=== PATIENT | female | born 1965 | race African-American/Black ===

== ENCOUNTER 2018-07-15 18:47 | Emergency (ER) | payer BC ==
[~2018-07-15] VITALS: Ht 177.8 cm; Wt 77.1 kg
--- NOTE | 2018-07-15 19:07 | PHYS DOC ---
Adult General Chief Complaint Chief Complaint: ABDOMINAL PAIN HPI HPI Patient is a 52 year old female presents the ED complaining of abdominal pain 3 days. States the pain started and it was sharp. States the pain was intermittent but has now become constant. States pain is in the right lower quadrant. Describes the pain as sharp. Rates the pain as 10 out of 10. Associated symptoms include nausea. Denies vomiting, chest pain, shortness of breath, diarrhea, fever, weakness, dizziness, chest pain or shortness of breath. Review of Systems Review of Systems Constitutional: Denies fever or chills [] Eyes: Denies change in visual acuity, redness, or eye pain [] HENT: Denies nasal congestion or sore throat [] Respiratory: Denies cough or shortness of breath [] Cardiovascular: No additional information not addressed in HPI [] GI: Complains of abdominal pain and nausea. Denies vomiting, bloody stools or diarrhea [] : Denies dysuria or hematuria [] Musculoskeletal: Denies back pain or joint pain [] Integument: Denies rash or skin lesions [] Neurologic: Denies headache, focal weakness or sensory changes [] All other systems were reviewed and found to be within normal limits, except as documented in this note. Current Medications Current Medications Current Medications Medications (Trade) Dose Ordered Sig/Whitney Start Time Stop Time Status Last Admin Dose Admin Iohexol (Omnipaque 300 Mg/ml) 75 ml 1X ONCE 07/15/18 19:45 07/15/18 19:46 DC 07/15/18 19:53 75 ML Ketorolac Tromethamine (Toradol 15mg Vial) 15 mg 1X ONCE 07/15/18 20:45 07/15/18 20:46 DC 07/15/18 21:06 15 MG Morphine Sulfate (Morphine Sulfate) 4 mg 1X ONCE 07/15/18 19:15 07/15/18 19:16 DC 07/15/18 19:24 4 MG Ondansetron HCl (Zofran) 4 mg 1X ONCE 07/15/18 19:15 07/15/18 19:16 DC 07/15/18 19:24 4 MG Allergies Allergies Allergies Coded Allergies Type Severity Reaction Last Updated Verified Penicillins Allergy Unknown 07/15/18 Yes ibuprofen Allergy Unknown 07/15/18 Yes Uncoded Allergies Type Severity Reaction Last Updated Verified SEA FOOD Allergy Unknown 07/15/18 Physical Exam Physical Exam Constitutional: Well developed, well nourished, no acute distress, non-toxic appearance. [] HENT: Normocephalic, atraumatic Cardiovascular:Heart rate regular rhythm, no murmur [] Lungs & Thorax: Bilateral breath sounds clear to auscultation [] Abdomen: Bowel sounds normal, soft, Mild RLQ tenderness, no masses, no pulsatile masses. [] Skin: Warm, dry, no erythema, no rash. [] Back: No tenderness, no CVA tenderness. [] Extremities: No tenderness, no cyanosis, no clubbing, ROM intact, no edema. [] Neurologic: Alert and oriented X 3, normal motor function, normal sensory function, no focal deficits noted. [] Psychologic: Affect normal, judgement normal, mood normal. [] Current Patient Data Vital Signs Vital Signs Date Time Temp Pulse Resp B/P (MAP) Pulse Ox O2 Delivery O2 Flow Rate FiO2 07/15/18 21:00 68 18 125/62 (83) 99 07/15/18 19:05 98.6 Room Air 98.6 Lab Values Laboratory Tests Test 07/15/18 19:00 07/15/18 19:15 Urine Collection Type Unknown Urine Color Yellow Urine Clarity Clear Urine pH 6.0 Urine Specific [place] 1.020 Urine Protein Negative mg/dL (NEG-TRACE) Urine Glucose (UA) Negative mg/dL (NEG) Urine Ketones (Stick) Negative mg/dL (NEG) Urine Blood Moderate (NEG) Urine Nitrite Negative (NEG) Urine Bilirubin Negative (NEG) Urine Urobilinogen Dipstick 1.0 mg/dL (0.2 mg/dL) Urine Leukocyte Esterase Negative (NEG) Urine RBC 6-10 /HPF (0-2) Urine WBC Occ /HPF (0-4) Urine Squamous Epithelial Cells Mod /LPF Urine Bacteria Few /HPF (0-FEW) Urine Mucus Mod /LPF White Blood Count 9.1 x10^3/uL (4.0-11.0) Red Blood Count 3.77 x10^6/uL (3.50-5.40) Hemoglobin 13.1 g/dL (12.0-15.5) Hematocrit 37.6 % (36.0-47.0) Mean Corpuscular Volume 100 fL (79-100) Mean Corpuscular Hemoglobin 35 pg (25-35) Mean Corpuscular Hemoglobin Concent 35 g/dL (31-37) Red Cell Distribution Width 14.5 % (11.5-14.5) Platelet Count 381 x10^3/uL (140-400) Neutrophils (%) (Auto) 57 % (31-73) Lymphocytes (%) (Auto) 32 % (24-48) Monocytes (%) (Auto) 7 % (0-9) Eosinophils (%) (Auto) 3 % (0-3) Basophils (%) (Auto) 0 % (0-3) Neutrophils # (Auto) 5.2 x10^3uL (1.8-7.7) Lymphocytes # (Auto) 2.9 x10^3/uL (1.0-4.8) Monocytes # (Auto) 0.7 x10^3/uL (0.0-1.1) Eosinophils # (Auto) 0.3 x10^3/uL (0.0-0.7) Basophils # (Auto) 0.0 x10^3/uL (0.0-0.2) Sodium Level 137 mmol/L (136-145) Potassium Level 3.9 mmol/L (3.5-5.1) Chloride Level 106 mmol/L (98-107) Carbon Dioxide Level 28 mmol/L (21-32) Anion Gap 3 (6-14) L Blood Urea Nitrogen 12 mg/dL (7-20) Creatinine 0.9 mg/dL (0.6-1.0) Estimated GFR (Cockcroft-Gault) 79.9 BUN/Creatinine Ratio 13 (6-20) Glucose Level 94 mg/dL (70-99) Calcium Level 8.8 mg/dL (8.5-10.1) Total Bilirubin 0.4 mg/dL (0.2-1.0) Aspartate Amino Transferase (AST) 19 U/L (15-37) Alanine Aminotransferase (ALT) 20 U/L (14-59) Alkaline Phosphatase 87 U/L (46-116) Total Protein 7.0 g/dL (6.4-8.2) Albumin 3.3 g/dL (3.4-5.0) L Albumin/Globulin Ratio 0.9 (1.0-1.7) L Lipase 121 U/L (73-393) Laboratory Tests 07/15/18 19:15 Laboratory Tests 07/15/18 19:15 EKG EKG [] Radiology/Procedures Radiology/Procedures PROCEDURE: CT ABD PELV W/ IV CONTRST ONLY PQRS Compliance statement: One or more of the following individualized dose reduction techniques were utilized for this examination: 1. Automated exposure control. 2. Adjustment of the mA and/or kV according to patient size. 3. Use of iterative reconstruction technique. Indication:SEVERE RLQ AND RT FLANK PAIN X 3 DAYS, [id number] 75ML, NO PRIORS TECHNIQUE: CT abdomen and pelvis with IV contrast with multiplanar reformats. COMPARISON: None FINDINGS: Heart is normal in size. No pericardial or pleural effusion. Calcified granuloma in the left lower lobe. Otherwise, lung bases are clear. Liver, spleen, gallbladder, pancreas, adrenals and kidneys are within normal limits. No enlarged retroperitoneal or pelvic adenopathy. No free pelvic fluid or ascites. Status post hysterectomy. No bowel obstruction. Multiple soft tissue nodules in the left upper quadrant likely accessory spleens. Appendix is within normal limits. No right lower quadrant inflammatory changes. Urinary bladder demonstrates no radiopaque stones. No suspicious bony lesion. IMPRESSION: 1. No nephrolithiasis or pelvis. 2. Normal appendix. No bowel obstruction.[] Course & Med Decision Making Course & Med Decision Making Pertinent Labs and Imaging studies reviewed. (See chart for details) []Discussed lab and imaging findings with patient. Patient's pain resolved. On re-examination, abdomen is soft nontender nondistended. No peritoneal signs. Tolerating by mouth. Possible passed kidney stone. Discussed symptomatic treatment at home. Patient states she is feeling much better. Patient able to ambulate without assistance. Talking and laughing in the exam room. Discussed follow-up with PCP this week. Provided contact information for urology and PCP. Discussed reasons to return to the ED. Patient understands and agrees with plan. Attending physician attestation: I was working at the time of this patient's ER visit and was available for consultation, but did not personally interview, examine, or directly take part in the patient's care. DO Soumya Barney Disclaimer Soumya Disclaimer This electronic medical record was generated, in whole or in part, using a voice recognition dictation system. Departure Departure Impression: Primary Impression: Abdominal pain Disposition: HOME, SELF-CARE Condition: IMPROVED Referrals: HUMA ELENA MD, MICHAEL M MD Patient Instructions: Abdominal Pain, Kidney Stones HUMA CASTELLANO Jul 15, 2018 19:07 STEVE TORREZ DO Jul 19, 2018 06:21
[2018-07-15] MEDS ORDERED: ONDANSETRON PF 4 MG/2 ML VIAL. IV ONE (19:15)
[2018-07-15] MEDS ORDERED: MORPHINE SULFATE 4 MG/ML VIAL. IV ONE (19:15)
[2018-07-15 19:23] LABS: BILIRUBIN,URINE NEGATIVE (NEG); CLARITY,URINE CLEAR; COLOR,URINE YELLOW; NITRITE,URINE NEGATIVE (NEG); PROTEIN,URINE NEGATIVE (NEG-TRACE)
[2018-07-15 19:29] LABS: BASO % 0 % (0-3); EOS # 0.3 x10^3/uL (0.0-0.7); EOS % 3 % (0-3); HEMATOCRIT 37.6 % (36.0-47.0); HEMOGLOBIN 13.1 g/dL (12.0-15.5); LYMPH # 2.9 x10^3/uL (1.0-4.8); LYMPH % 32 % (24-48); MEAN CORPUSCULAR HEMOGLOBIN 35 pg (25-35); MEAN CORPUSCULAR HGB CONC 35 g/dL (31-37); MEAN CORPUSCULAR VOLUME 100 fL (79-100); MONO # 0.7 x10^3/uL (0.0-1.1); MONO % 7 % (0-9); NEUT # 5.2 x10^3uL (1.8-7.7); NEUT % 57 % (31-73); PLATELET COUNT 381 x10^3/uL (140-400); RED BLOOD COUNT 3.77 x10^6/uL (3.50-5.40); RED CELL DISTRIBUTION WIDTH 14.5 % (11.5-14.5); WHITE BLOOD COUNT 9.1 x10^3/uL (4.0-11.0)
[2018-07-15 19:40] LABS: CALCIUM 8.8 mg/dL (8.5-10.1); CREATININE 0.9 mg/dL (0.6-1.0); GFR 79.9; POTASSIUM 3.9 mmol/L (3.5-5.1)
[2018-07-15 19:43] LABS: BACTERIA,URINE FEW /HPF (0-FEW); SQUAMOUS EPITHELIAL CELL,UR MOD /LPF; WBC,URINE OCC /HPF (0-4)
[2018-07-15] MEDS ORDERED: IOHEXOL 300 MG/ML 100ML VIAL. IV ONE (19:45)
[2018-07-15 19:46] LABS: ALBUMIN 3.3 g/dL (3.4-5.0); ALBUMIN/GLOBULIN RATIO 0.9 (1.0-1.7); TOTAL BILIRUBIN 0.4 mg/dL (0.2-1.0)
--- NOTE | 2018-07-15 20:10 | RAD ---
PQRS Compliance statement: One or more of the following individualized dose reduction techniques were utilized for this examination: 1. Automated exposure control. 2. Adjustment of the mA and/or kV according to patient size. 3. Use of iterative reconstruction technique. Indication:SEVERE RLQ AND RT FLANK PAIN X 3 DAYS, [id number] 75ML, NO PRIORS TECHNIQUE: CT abdomen and pelvis with IV contrast with multiplanar reformats. COMPARISON: None FINDINGS: Heart is normal in size. No pericardial or pleural effusion. Calcified granuloma in the left lower lobe. Otherwise, lung bases are clear. Liver, spleen, gallbladder, pancreas, adrenals and kidneys are within normal limits. No enlarged retroperitoneal or pelvic adenopathy. No free pelvic fluid or ascites. Status post hysterectomy. No bowel obstruction. Multiple soft tissue nodules in the left upper quadrant likely accessory spleens. Appendix is within normal limits. No right lower quadrant inflammatory changes. Urinary bladder demonstrates no radiopaque stones. No suspicious bony lesion. IMPRESSION: 1. No nephrolithiasis or pelvis. 2. Normal appendix. No bowel obstruction. Electronically signed by: Miguel Angel Wilcox DO (07/15/2018 8:07 PM) [facility]
[2018-07-15] MEDS ORDERED: KETOROLAC 15 MG/ML VIAL. IV ONE (20:45)
[2018-07-15 21:00] VITALS: BP 125/62
== END 2018-07-15 21:38 | disposition home or self-care (01) ==
LOC: ER 18:47
DX: R10.31 Right lower quadrant pain (principal); Z88.0 Allergy status to penicillin; Z88.6 Allergy status to analgesic agent; Z91.013 Allergy to seafood
CPT/HCPCS: 36415; 74177; 80053; 81001; 83690; 85025; 96374; 96375; 99285; J1885; J2270; J2405; Q9967

== ENCOUNTER 2019-02-23 16:44 | Emergency (ER) | payer BC ==
[~2019-02-23] VITALS: Ht 177.8 cm; Wt 78.0 kg
[2019-02-23 16:50] VITALS: BP 127/84
[2019-02-23] MEDS ORDERED: diazePAM 5 MG TABLET PO ONE (17:15)
[2019-02-23] MEDS ORDERED: HYDROcodone/APAP 5/325MG 1 TAB TABLET PO ONE (17:15)
[2019-02-23] MEDS ORDERED: predniSONE 20 MG TABLET PO ONE (17:15)
--- NOTE | 2019-02-23 17:24 | PHYS DOC ---
Past Medical History Past Medical History: No Pertinent History Past Surgical History: Hysterectomy Alcohol Use: None Drug Use: None Adult General Chief Complaint Chief Complaint: BACK PAIN - NO INJURY HPI HPI Patient is a 53 year old female with no significant medical history who presents to the ED today complaining of 10 out of 10 left low back pain radiating to the left lower extremity that began yesterday. Patient denies any known injury. She states she attempted to get them a massage which made the pain worse. She describes the pain as sharp and intermittent worse on raising her left upper extremity up as well as weight bearing. She denies any loss of bowel bladder function. Denies any numbness or tingling to bilateral lower extremities. Review of Systems Review of Systems Constitutional: Denies fever or chills [] : Denies dysuria or hematuria [] Musculoskeletal: Reports left low back pain radiating to the left lower extremity Integument: Denies rash or skin lesions [] Neurologic: Denies headache, focal weakness or sensory changes [] All other systems were reviewed and found to be within normal limits, except as documented in this note. Current Medications Current Medications Current Medications Medications (Trade) Dose Ordered Sig/[facility] Start Time Stop Time Status Last Admin Dose Admin Acetaminophen/ Hydrocodone Bitart (Lortab 5/325) 2 tab 1X ONCE 02/23/19 17:15 02/23/19 17:16 DC Diazepam (Valium) 5 mg 1X ONCE 02/23/19 17:15 02/23/19 17:17 DC Prednisone (Prednisone) 60 mg 1X ONCE 02/23/19 17:15 02/23/19 17:17 DC Allergies Allergies Allergies Coded Allergies Type Severity Reaction Last Updated Verified Penicillins Allergy Unknown 07/15/18 Yes ibuprofen Allergy Unknown 07/15/18 Yes Uncoded Allergies Type Severity Reaction Last Updated Verified SEA FOOD Allergy Unknown 07/15/18 Physical Exam Physical Exam Constitutional: Well developed, well nourished, no acute distress, non-toxic appearance. [] Abdomen: Bowel sounds normal, soft, no tenderness, no masses, no pulsatile masses. [] Skin: Warm, dry, no erythema, no rash. [] Back: Diffuse paraspinal muscle tenderness the left lumbar spine, no midline lumbar spine tenderness, no CVA tenderness. [] Extremities: No tenderness, no cyanosis, no clubbing, ROM intact, no edema. [] Neurologic: Alert and oriented X 3, normal motor function, normal sensory function, no focal deficits noted. [] Psychologic: Affect normal, judgement normal, mood normal. [] Current Patient Data Vital Signs Vital Signs Date Time Temp Pulse Resp B/P (MAP) Pulse Ox O2 Delivery O2 Flow Rate FiO2 02/23/19 16:50 97.5 70 18 127/84 (98) 98 Room Air 97.5 EKG EKG [] Radiology/Procedures Radiology/Procedures [] Course & Med Decision Making Course & Med Decision Making Pertinent Labs and Imaging studies reviewed. (See chart for details) This is a 53-year-old female patient presenting to the ED today with left low back pain radiating to the left lower extremity, no known injury, no cauda equina syndrome symptoms. Pain appears musculoskeletal. Will be discharged to home. Follow-up with primary care doctor in 1-2 weeks. Dragon Disclaimer Dragon Disclaimer This electronic medical record was generated, in whole or in part, using a voice recognition dictation system. Departure Departure Impression: Primary Impression: Low back pain Disposition: 01 HOME, SELF-CARE Condition: STABLE Referrals: NO PCP (PCP) STEVE SILVA MD follow up in 1-2 weeks Patient Instructions: Back Pain, Adult Additional Instructions: You were evaluated in the emergency room for back pain. We put you on medications, take them as prescribed. Please follow-up with the primary care doctor in the next 1-2 weeks. Scripts Methylprednisolone (MEDROL) 4 Mg Tab.ds.pk 1 PKG PO UD, #1 PKG Prov: MONA HERNANDEZ APRN 02/23/19 Cyclobenzaprine Hcl (CYCLOBENZAPRINE HCL) 10 Mg Tablet 1 TAB PO TID, #90 TAB Prov: MONA HERNANDEZ APRN 02/23/19 Hydrocodone/Apap 5-325 (NORCO 5-325 TABLET) 1 Each Tablet 1 TAB PO Q6HRS, #20 TAB Prov: MONA HERNANDEZ APRN 02/23/19 Problem Qualifiers Primary Impression: Low back pain Chronicity: acute Back pain laterality: left Sciatica presence: with sciatica Sciatica laterality: sciatica of left side Qualified Codes: M54.42 - Lumbago with sciatica, left side MONA HERNANDEZ APRN Feb 23, 2019 17:24
[2019-02-23] MEDS ORDERED: CYCL10TA2 PO (17:29)
[2019-02-23] MEDS ORDERED: HYDR-3164 PO (17:29)
[2019-02-23] MEDS ORDERED: METH4TAB2 PO (17:29)
[2019-04-15] MEDS ORDERED: ESTR2TAB PO (12:11)
[2019-04-15] MEDS ORDERED: VARE1TAB21 PO (12:12)
== END 2019-02-23 18:05 | disposition home or self-care (01) ==
LOC: ER 16:44
DX: M54.42 Lumbago with sciatica, left side (principal); Z90.710 Acquired absence of both cervix and uterus; Z88.0 Allergy status to penicillin; Z88.6 Allergy status to analgesic agent; Z91.013 Allergy to seafood
CPT/HCPCS: 99284; J7512

== ENCOUNTER → 2019-03-12 | Outpatient (CLI) | payer BC ==
[2019-02-23 16:50] VITALS: BP 127/84
[~2019-03-12] MED LIST: CYCL10TA2 PO; ESTR2TAB PO; HYDR-3164 PO; METH4TAB2 PO; VARE1TAB21 PO
--- NOTE | 2019-03-12 17:37 | RAD ---
HIP LEFT 2 VIEW History: LEFT HIP AND GROIN PAIN, NO KNOWN INJURY. No acute fracture. No evidence of aggressive bone destruction. Joint spaces are intact. Mild subchondral sclerosis at the pubic bones, likely reactive. IMPRESSION: No acute radiographic abnormality at the left hip. Electronically signed by: Joshua Culp MD (03/12/2019 5:34 PM) [id number]
--- NOTE | 2019-03-12 18:11 | RAD ---
LUMBAR SPINE 2-3V History: CHRONIC LOW BACK PAIN, NO KNOWN INJURY. Vertebral body height is maintained. Alignment intact. Loss of height and marginal spurring at the lumbosacral junction compatible with degenerative disc disease. IMPRESSION: Degenerative changes at the lumbosacral junction. Electronically signed by: Joshua Culp MD (03/12/2019 6:08 PM) [facility]
--- NOTE | 2019-03-13 13:15 | RAD ---
DATE: 03/12/2019 EXAM: MAMMO ELIAZAR SCREENING BILATERAL HISTORY: Routine screening COMPARISON: 02/04/2011, 07/10/2017 mammographic exams This study was interpreted with the benefit of Computerized Aided Detection (CAD). Breast Density: SCATTERED The breast parenchyma shows scattered fibroglandular densities. Breast parenchyma level B. FINDINGS: A new mass involving the right lower outer far posterior breast in the deep retroareolar region is present and measures approximately 0.5 cm diameter and is well-circumscribed on the CC projection. A small new mass involving the middle the posterior one third of the left retroareolar region is present in the interval measuring up to 0.5 cm diameter. No suspicious calcifications or distortion. IMPRESSION: Bilateral new masses present. Ultrasound examination bilaterally is recommended. Spot compression imaging may subsequently be needed. BI-RADS CATEGORY: 0 INCOMPLETE: NEEDS ADDITIONAL IMAGING EVALUATION AND/OR PRIOR MAMMOGRAMS FOR COMPARISON. RECOMMENDED FOLLOW-UP: ADD ADDITIONAL IMAGING PQRS compliance statement: Patient information was entered into a reminder system with a target due date pending ultrasound evaluation for the next mammogram. Mammography is a sensitive method for finding small breast cancers, but it does not detect them all and is not a substitute for careful clinical examination. A negative mammogram does not negate a clinically suspicious finding and should not result in delay in biopsying a clinically suspicious abnormality. "Our facility is accredited by the [employer] Mammography Program."
== END | disposition home or self-care (01) ==
LOC: MAMMO 14:19
PROVIDERS: ATTEND Family Medicine
DX: Z12.31 Encounter for screening mammogram for malignant neoplasm of breast (principal); N63.13 Unspecified lump in the right breast, lower outer quadrant; N63.20 Unspecified lump in the left breast, unspecified quadrant; M89.8X8 Other specified disorders of bone, other site; M47.817 Spondylosis without myelopathy or radiculopathy, lumbosacral region; M25.552 Pain in left hip
CPT/HCPCS: 72100; 73502; 77063; 77067

== ENCOUNTER → 2019-03-19 | Outpatient (CLI) | payer BC ==
[2019-02-23 16:50] VITALS: BP 127/84
--- NOTE | 2019-03-19 15:23 | RAD ---
Bilateral breast ultrasound, 03/19/2019: History: Abnormal mammograms Previous mammograms demonstrated small bilateral breast nodules. A targeted ultrasound exam of both breasts was performed. On the right, at the 6:30 location approximately 5 cm from the nipple there is a 5 x 4 x 4 mm hypoechoic nodule. This probably corresponds to the mammographic abnormality. There are minimal low level internal echoes. No internal color flow is seen. There is a sharp posterior wall with faint posterior acoustic enhancement. This is probably a complicated cyst. On the left, at the 6:00 location approximately 4 cm from the nipple there is a 5 x 4 x 4 mm hypoechoic nodule with similar sonographic characteristics. No internal color flow or posterior acoustic shadowing is seen. This probably corresponds in location to the left nodule identified mammographically. At the 8:00 location in the left breast approximately 5 cm from the nipple there there is a 4 x 4 x 2 mm hypoechoic nodule with similar sonographic characteristics. A similar 5 x 4 x 3 mm hypoechoic nodule is present at the 4:00 location in the left breast approximately 7 cm in the nipple. IMPRESSION: Probably benign small bilateral breast nodules as described above, two of which appear to correspond in location to the mammographic findings. Bilateral mammographic and sonographic follow-up in 6 months is suggested. BI-RADS 3-probably benign findings
== END | disposition home or self-care (01) ==
LOC: US 15:35
PROVIDERS: ATTEND Family Medicine
DX: N63.23 Unspecified lump in the left breast, lower outer quadrant (principal); N63.24 Unspecified lump in the left breast, lower inner quadrant; N63.13 Unspecified lump in the right breast, lower outer quadrant
CPT/HCPCS: 76641

== ENCOUNTER → 2019-04-15 | Outpatient (CLI) | payer BC ==
[~2019-04-15] MED LIST changes: +IOHEXOL 180 MG/ML 10 ML VIAL. ONE; +methylPREDNISolone ACETATE 40 MG/ML VIAL. ONE; +methylPREDNISolone ACETATE 80 MG/ML VIAL. ONE
--- NOTE | 2019-04-16 05:08 | PAIN ---
DATE OF SERVICE: 04/15/2019 INITIAL CONSULTATION FOR PAIN CLINIC CHIEF COMPLAINT: Low back and left lower extremity pain. HISTORY OF PRESENT ILLNESS: This is a 53-year-old female who presents with history of pain for about a year, increasing in the low back, but into the leg for about a month, was becoming much more noticeable in the posterior gluteus, posterior thigh, posterior calf all on the left side, some in the lateral thigh as well. It is worst with walking, standing and changing positions. This patient reports no specific injury or action that she is aware of particularly it got worse over time. The patient reports it is now throbbing and shooting in the low back and leg, tingling and numbness, radiation to the leg as well in the calf and aching across the low back. The patient has had some exercise therapy in the home or is doing on her own in the past, also had some physical therapy in the distant past, but nothing recently. No chiropractic treatment or other modalities. The patient reports it awakens her from sleep about 3 to 4 times at night, does not affect her bowel or bladder control, but does affect her ability to walk. She is walking with a significant limp favoring the left lower extremity, but not using any assistive devices. The patient is taking Flexeril as well as Aleve neither of which are decreasing the pain significantly. The patient did have some plain films of the lumbar spine showing degenerative changes of the lumbosacral junction compatible with degenerative disk disease and also normal left hip film. The patient rates her disability rating from 0 to 10, 10 being the worst, as an 8 with family and home responsibilities, social activity, self-care and life support activities, 9 with recreation, 10 with occupation and sexual behavior. The patient reports no loss of motor function with significant fatigability of the left leg compared to the right with any activity, walking, standing or sitting for longer than 20 to 30 minutes. PAST MEDICAL HISTORY: Significant for cigarette smoking, quit 1 month ago, previously 20 years for a pack and half a day and headaches. PREVIOUS SURGERY: Include hysterectomy in 1996 and left foot surgery in the past. CURRENT MEDICATIONS: Include Chantix, estradiol and cyclobenzaprine. ALLERGIES: THE PATIENT IS ALLERGIC TO IBUPROFEN AND AMOXICILLIN. SOCIAL HISTORY: The patient does not drink alcohol. Quit smoking about a month ago. She is not using any illegal, illicit or recreational drugs. She is single. Lives locally in [place], [place] and works for [employer]. FAMILY HISTORY: Significant for Hodgkin's disease in the patient's mother. REVIEW OF SYSTEMS: The patient's review of systems is positive for those items mentioned in the history of present illness. All systems reviewed and otherwise negative. It is complete, full and well documented on the patient's chart. PHYSICAL EXAMINATION: VITAL SIGNS: The patient's blood pressure is 134/82, pulse 68, respiration 18, temperature 98.0 degree Fahrenheit, height is 5 feet 10 inches and weight is 179 pounds. GENERAL: The patient is awake, alert, oriented, appropriate, very pleasant demeanor. HEENT: Head shows normocephalic and atraumatic. Extraocular movements are intact and symmetrical. Oral cavity: Mucous membranes are moist and pink. Dentition is intact. NECK: Shows anterior throat is supple without palpable lymphadenopathy noted. Swallow reflex is symmetrical. CHEST: Shows normal with inspection. Breath sounds are clear to auscultation bilaterally. HEART: Shows S1, S2 clear. No murmurs are auscultated. ABDOMEN: Soft, nontender and nondistended. No palpable organomegaly is noted. No rebound or guarding demonstrated. BACK: Shows spine grossly in the midline, normal cervical lordotic curvature, thoracic kyphotic curvature and lumbar lordotic curvature. Lumbar paraspinous muscle shows symmetrical on inspection. With palpation shows some moderate tenderness diffusely more to the left than the right in the low lumbar distribution, but tender bilaterally. The patient shows good rotational motion of the lumbar spine, was slightly greater than 10 degrees right and left as well as extension greater than 10 degrees and forward flexion 45 degrees without exacerbation of pain. No tenderness over the spinous processes, sacrum or sacroiliac regions. EXTREMITIES: The patient's lower extremities show deep tendon reflexes 2+ in the patellar, 1+ tendo-calcaneus tendons. Motor exam is approximately 4 on a scale of 5 with left dorsiflexion, extension and 5/5 on the right, quadriceps and hamstring flexion again 4/5 on the left and 5/5 on the right as well. Peripheral pulses are 1+ posterior tibial. No peripheral edema is noted. Lower extremities are warm and dry to touch, equal in color and appearance. The patient's straight leg raise is noted to be positive on the left at about 35 degrees and right side is negative. Gaenslen's and Robert's maneuvers are negative bilaterally. The patient is able to stand, stand on her toes without significant difficulty or loss of balance, but is walking with a significant limp favoring the left lower extremity. Again no assistive devices. SKIN: The patient's skin shows warm and dry and good turgor. No edema. No sores, rashes or bruising. IMPRESSION: 1. This is a 53-year-old female with one month history of increasing radicular pain in the left lower back and left lower extremity with about a year of low back pain altogether. 2. Plain film of the lumbar spine is noted. 3. History of cigarette smoking. PLAN: Options were discussed with the patient including conservative medical management, physical therapy, interventional techniques and she would like to pursue with interventional techniques. We discussed a lumbar epidural steroid injection using description as well as anatomical models to describe the procedure. Risks were then discussed including, but not limited to bleeding, infection, possibility of epidural hematoma and subsequent neurological compromise, dural puncture, headaches, spinal cord and/or nerve damage, side effects of steroid medication and poor results regarding pain control. The patient understands and wished to proceed. The patient will return to the clinic in approximately 2 weeks for followup. She was counseled as to return appointment, activity level and side effects to be aware of. DIAGNOSES: Lumbar radiculopathy with lumbar degenerative disk disease. PROCEDURE: Lumbar epidural steroid injection, translaminar approach at L5-S1 level using C-arm fluoroscopic guidance under sterile prep and drape using local anesthetic. MEDICATION INJECTED: A total of 120 mg Depo-Medrol plus 10 mL of preservative-free normal saline and 2 mL Isovue for contrast. CONDITION AT DISCHARGE: Stable. The patient tolerated the procedure well and had no complications. STEVE SILVA MD DR: BENJAMIN/salvador JOB#: [id number] / [id number] Radha Barrow
== END ==
LOC: PNCL 11:06
PROVIDERS: ATTEND Anesthesiology
DX: M51.16 Intervertebral disc disorders with radiculopathy, lumbar region (principal); M54.5 Low back pain; Z87.891 Personal history of nicotine dependence; Z88.1 Allergy status to other antibiotic agents; Z79.899 Other long term (current) drug therapy; Z90.710 Acquired absence of both cervix and uterus; Z98.890 Other specified postprocedural states
CPT/HCPCS: 62323; J1030; J1040; Q9965

== ENCOUNTER 2019-05-27 23:50 | Emergency (ER) | payer BC ==
[~2019-05-27] VITALS: Ht 177.8 cm; Wt 81.6 kg
[~2019-05-27 23:50] MED LIST changes: -IOHEXOL 180 MG/ML 10 ML VIAL. ONE; -methylPREDNISolone ACETATE 40 MG/ML VIAL. ONE; -methylPREDNISolone ACETATE 80 MG/ML VIAL. ONE
[2019-05-27] MEDS ORDERED: ADENOSINE 6 MG/2 ML VIAL. IV ONE (23:55)
[2019-05-28 00:15] LABS: BASO % 0 % (0-3); EOS # 0.1 x10^3/uL (0.0-0.7); EOS % 1 % (0-3); HEMATOCRIT 42.1 % (36.0-47.0); HEMOGLOBIN 14.7 g/dL (12.0-15.5); LYMPH # 5.3 x10^3/uL (1.0-4.8); LYMPH % 37 % (24-48); MEAN CORPUSCULAR HEMOGLOBIN 36 pg (25-35); MEAN CORPUSCULAR HGB CONC 35 g/dL (31-37); MEAN CORPUSCULAR VOLUME 103 fL (79-100); MONO # 1.1 x10^3/uL (0.0-1.1); MONO % 8 % (0-9); NEUT # 7.9 x10^3/uL (1.8-7.7); NEUT % 54 % (31-73); PLATELET COUNT 528 x10^3/uL (140-400); RED BLOOD COUNT 4.09 x10^6/uL (3.50-5.40); WHITE BLOOD COUNT 14.5 x10^3/uL (4.0-11.0)
[2019-05-28] MEDS ORDERED: IV NORMAL SALINE 1000ML BAG 1,000 ML IV ONE (00:15)
[2019-05-28 00:25] LABS: CALCIUM 8.7 mg/dL (8.5-10.1); CREATININE 1.1 mg/dL (0.6-1.0); GFR 63.1; POTASSIUM 3.5 mmol/L (3.5-5.1)
[2019-05-28 00:31] LABS: ALBUMIN 3.4 g/dL (3.4-5.0); ALBUMIN/GLOBULIN RATIO 0.8 (1.0-1.7); MAGNESIUM 1.9 mg/dL (1.8-2.4); TOTAL BILIRUBIN 0.3 mg/dL (0.2-1.0); TOTAL PROTEIN 7.5 g/dL (6.4-8.2)
[2019-05-28 01:18] VITALS: BP 105/65
[2019-05-28] MEDS ORDERED: ONDA4TAB7 PO (01:29)
[2019-05-28] MEDS ORDERED: ADENOSINE 6 MG/2 ML VIAL. IV ONE (01:30)
--- NOTE | 2019-05-28 01:30 | PHYS DOC ---
Past Medical History Past Medical History: No Pertinent History Past Surgical History: Hysterectomy Alcohol Use: None Drug Use: None Adult General Chief Complaint Chief Complaint: ALTERED MENTAL STATUS HPI HPI Patient is a 53-year-old female who presents with palpitations and shortness of breath. Patient states she felt like she had food poisoning earlier today and had some nausea and vomiting. She states she vomited several times. This evening she developed some abdominal cramps and shortly thereafter felt as if her heart was beating fast. During this time she became very short of breath and profoundly weak. She denies any chest pain. She states this kind of thing has never happened before. She denies any diet pills, excessive caffeine, stimulants or other illicit drugs.[] Review of Systems Review of Systems Constitutional: Denies fever or chills [] Eyes: Denies change in visual acuity, redness, or eye pain [] HENT: Denies nasal congestion or sore throat [] Respiratory: Denies cough or shortness of breath [] Cardiovascular: No additional information not addressed in HPI [] GI: Per history of present illness[] : Denies dysuria or hematuria [] Musculoskeletal: Denies back pain or joint pain [] Integument: Denies rash or skin lesions [] Neurologic: Denies headache, focal weakness or sensory changes [] Endocrine: Denies polyuria or polydipsia [] All other systems were reviewed and found to be within normal limits, except as documented in this note. Current Medications Current Medications Current Medications Medications (Trade) Dose Ordered Sig/Whitney Start Time Stop Time Status Last Admin Dose Admin Adenosine (Adenocard) 6 mg STK-MED ONCE 05/27/19 23:55 05/27/19 23:56 DC Sodium Chloride 1,000 ml @ 1,000 mls/hr 1X ONCE 05/28/19 00:15 05/28/19 01:14 DC 05/28/19 01:03 1,000 MLS/HR Allergies Allergies Allergies Coded Allergies Type Severity Reaction Last Updated Verified Penicillins Allergy Unknown 07/15/18 Yes ibuprofen Allergy Unknown 07/15/18 Yes Uncoded Allergies Type Severity Reaction Last Updated Verified SEA FOOD Allergy Unknown 07/15/18 Physical Exam Physical Exam Constitutional: Well developed, well nourished, no acute distress, non-toxic appearance. [] HENT: Normocephalic, atraumatic, bilateral external ears normal, oropharynx moist, no oral exudates, nose normal. [] Eyes: PERRLA, EOMI, conjunctiva normal, no discharge. [] Neck: Normal range of motion, no tenderness, supple, no stridor. [] Cardiovascular: Tachycardic without murmur[] Lungs & Thorax: Bilateral breath sounds clear to auscultation [] Abdomen: Bowel sounds normal, soft, no tenderness, no masses, no pulsatile masses. [] Skin: Cool and clammy. [] Back: No tenderness, no CVA tenderness. [] Extremities: No tenderness, no cyanosis, no clubbing, ROM intact, no edema. [] Neurologic: Alert and oriented X 3, normal motor function, normal sensory function, no focal deficits noted. [] Psychologic: Anxious. [] Current Patient Data Lab Values Laboratory Tests Test 05/28/19 00:01 White Blood Count 14.5 x10^3/uL (4.0-11.0) H Red Blood Count 4.09 x10^6/uL (3.50-5.40) Hemoglobin 14.7 g/dL (12.0-15.5) Hematocrit 42.1 % (36.0-47.0) Mean Corpuscular Volume 103 fL (79-100) H Mean Corpuscular Hemoglobin 36 pg (25-35) H Mean Corpuscular Hemoglobin Concent 35 g/dL (31-37) Red Cell Distribution Width 14.0 % (11.5-14.5) Platelet Count 528 x10^3/uL (140-400) H Neutrophils (%) (Auto) 54 % (31-73) Lymphocytes (%) (Auto) 37 % (24-48) Monocytes (%) (Auto) 8 % (0-9) Eosinophils (%) (Auto) 1 % (0-3) Basophils (%) (Auto) 0 % (0-3) Neutrophils # (Auto) 7.9 x10^3/uL (1.8-7.7) H Lymphocytes # (Auto) 5.3 x10^3/uL (1.0-4.8) H Monocytes # (Auto) 1.1 x10^3/uL (0.0-1.1) Eosinophils # (Auto) 0.1 x10^3/uL (0.0-0.7) Basophils # (Auto) 0.0 x10^3/uL (0.0-0.2) Sodium Level 139 mmol/L (136-145) Potassium Level 3.5 mmol/L (3.5-5.1) Chloride Level 102 mmol/L (98-107) Carbon Dioxide Level 26 mmol/L (21-32) Anion Gap 11 (6-14) Blood Urea Nitrogen 11 mg/dL (7-20) Creatinine 1.1 mg/dL (0.6-1.0) H Estimated GFR (Cockcroft-Gault) 63.1 BUN/Creatinine Ratio 10 (6-20) Glucose Level 136 mg/dL (70-99) H Calcium Level 8.7 mg/dL (8.5-10.1) Magnesium Level 1.9 mg/dL (1.8-2.4) Total Bilirubin 0.3 mg/dL (0.2-1.0) Aspartate Amino Transferase (AST) 17 U/L (15-37) Alanine Aminotransferase (ALT) 23 U/L (14-59) Alkaline Phosphatase 89 U/L (46-116) Troponin I Quantitative < 0.017 ng/mL (0.000-0.055) Total Protein 7.5 g/dL (6.4-8.2) Albumin 3.4 g/dL (3.4-5.0) Albumin/Globulin Ratio 0.8 (1.0-1.7) L Thyroid Stimulating Hormone (TSH) 6.978 uIU/mL (0.358-3.74) H Laboratory Tests 05/28/19 00:01 Laboratory Tests 05/28/19 00:01 EKG EKG EKG #1: Supraventricular tachycardia rate of around [address]-T changes. EKG #2: Normal sinus rhythm rate of [address]-T changes] Radiology/Procedures Radiology/Procedures [] Impressions: Chest x-ray: Negative exam as interpreted by me Course & Med Decision Making Course & Med Decision Making Pertinent Labs and Imaging studies reviewed. (See chart for details) [ED course: Evaluation reveals a 53-year-old female in supraventricular tachycardia with rate of 200. We initially tried Valsalva maneuvers without success. The patient was then given 12 mg of adenosine with immediate cardioversion. Patient tolerated chemical cardioversion well. I've let the patient know that her TSH is slightly elevated but going to hold off on beginning any thyroid medication as this would likely exacerbate her SVT. I do not believe she needs to be on medicine at this time. We'll have her follow with cardiology as an outpatient.] Soumya Disclaimer Dragon Disclaimer This electronic medical record was generated, in whole or in part, using a voice recognition dictation system. Departure Departure Impression: Primary Impression: Supraventricular tachycardia Additional Impression: Hypothyroid Disposition: HOME, SELF-CARE Condition: IMPROVED Referrals: BRIAN AKERS (PCP) GERARDO CHOWDHURY MD Call Dr. Chowdhury's office tomorrow to schedule a follow-up Patient Instructions: Supraventricular Tachycardia Additional Instructions: Follow with the firebrick layer helper sometime next week for recheck. Return to the emergency department if your symptoms recur or he develop any new or concerning symptoms. Scripts Ondansetron Hcl (ZOFRAN) 4 Mg Tablet 1 TAB PO Q8HRS PRN for NAUSEA, #20 TAB Prov: JOHN AG DO 05/28/19 Problem Qualifiers Additional Impression: Hypothyroid Hypothyroidism type: unspecified Qualified Codes: E03.9 - Hypothyroidism, unspecified JOHN AG DO May 28, 2019 01:30
--- NOTE | 2019-05-28 06:23 | EKG ---
[facility] [address] [place] [address] Test Date: 2019-05-28 Test Time: 00:01:10 Pat Name: GEORGE SMITH Department: Room: Gender: F Certified Detention Deputy: : 1965 Requested By: JOHN AG Order Number: [id number] Reading MD: Measurements Intervals [place] Rate: 90 P: 57 SD: 140 QRS: 51 QRSD: 72 T: 62 QT: 344 QTc: 425 Interpretive Statements SINUS RHYTHM QRS(T) CONTOUR ABNORMALITY CONSIDER ANTEROSEPTAL MYOCARDIAL DAMAGE POSSIBLY ABNORMAL ECG RI6.01 Unconfirmed report No previous ECG available for comparison
--- NOTE | 2019-05-28 07:51 | RAD ---
CHEST AP ONLY Clinical Indication: Tachycardia Comparison: None. Findings: The cardiomediastinal silhouette is normal. Lungs are clear. There is no pneumothorax. No pleural effusion is appreciated. No acute bone abnormality. IMPRESSION: No acute cardiopulmonary process. Electronically signed by: Sven Del Toro MD (05/28/2019 7:48 AM) [facility]
--- NOTE | 2019-05-28 07:56 | EKG ---
[facility] [address] [place] [address] Test Date: 2019-05-28 Test Time: 00:01:56 Pat Name: GEORGE SMITH Department: Room: Gender: F Exotic Dancer: : 1965 Requested By: JOHN AG Order Number: [id number] Reading MD: Measurements Intervals [place] Rate: P: [place]: QRS: QRSD: T: QT: QTc: Interpretive Statements
== END 2019-05-28 01:34 | disposition home or self-care (01) ==
LOC: ER 23:50
DX: I47.1 Supraventricular tachycardia (principal); E03.9 Hypothyroidism, unspecified; R11.2 Nausea with vomiting, unspecified; R06.02 Shortness of breath; Z90.710 Acquired absence of both cervix and uterus; Z88.0 Allergy status to penicillin; Z88.6 Allergy status to analgesic agent; Z91.013 Allergy to seafood
CPT/HCPCS: 36415; 71045; 80053; 83735; 84443; 84484; 85025; 93005; 96374; 99285; J0153; J7030

== ENCOUNTER → 2019-07-01 | Outpatient (CLI) | payer BC ==
[~2019-07-01] MED LIST changes: +IOHEXOL 180 MG/ML 10 ML VIAL. ONE; +ONDA4TAB7 PO; +methylPREDNISolone ACETATE 40 MG/ML VIAL. ONE; +methylPREDNISolone ACETATE 80 MG/ML VIAL. ONE
--- NOTE | 2019-07-01 10:04 | PAIN ---
DATE OF SERVICE: 07/01/2019 PROGRESS NOTE FOR PAIN CLINIC DIAGNOSIS: Lumbar radiculopathy with lumbar degenerative disk disease. HISTORY OF PRESENT ILLNESS: The patient is a 53-year-old female who returns for followup status post lumbar epidural steroid injection x 1, last seen 04/15/2019. The patient did very well, near 100% improvement until the last few weeks, pain returning in the low back, left lower extremity, mostly in the posterior gluteus, posterior thigh, posterior calf, but doing much better for that. She has increased her distance walking, doing work activities, household activities, much more active, sleeping better now, is beginning to awaken from sleep about every 5-6 hours, worse with walking and standing. The patient reports over the last week, her pain is a 9 on a scale of 10 at its worst, 7 on average, 6 at its least and is a 6 today, aching, dull, sharp, shooting, burning, becoming more constant, more noticeable in the low back and left leg. The patient reports no new motor or sensory deficits, no new bowel or bladder incontinence or other complaints. PHYSICAL EXAMINATION: VITAL SIGNS: The patient's blood pressure 118/72, pulse 63, respirations are 18, temperature 97.6 degrees Fahrenheit, height is 5 feet 10 inches and weight is 177 pounds. GENERAL: The patient is awake, alert, oriented, appropriate, very pleasant demeanor. HEENT: Shows normocephalic, atraumatic. Extraocular movements are intact and symmetrical. Oral cavity: Mucous membranes moist and pink. Dentition is intact. NECK: Shows anterior throat supple without palpable lymphadenopathy noted. Swallow reflex symmetrical. CHEST: Shows normal on inspection. Breath sounds clear to auscultation bilaterally. HEART: Shows S1, S2 clear. No murmurs auscultated. ABDOMEN: Soft, nontender, nondistended. No palpable organomegaly is noted. No rebound or guarding demonstrated. BACK: Shows spine grossly in the midline. Normal appearing thoracic kyphosis and lumbar lordotic curvature. Lumbar paraspinous muscle shows symmetrical on inspection, on palpation shows some moderate tenderness diffusely in the low lumbar distribution only good rotational motion is maintained both laterally as well as extension and flexion without difficulty. EXTREMITIES: Lower extremities show deep tendon reflexes 2+ in the patellar, 1+ tendo-calcaneus tendons. Motor exam is approximately 4 on a scale of 5 with left dorsiflexion, extension, 5/5 on the right. Peripheral pulses are 1+ posterior tibia. No peripheral edema is noted. Options were discussed with the patient. The patient's old chart was reviewed as her current medication regimen updated. Current review of systems updated today as well. We will proceed with a second in the series of lumbar epidural steroid injection today with fluoroscopic guidance. Risks were again discussed including, but not limited to bleeding, infection, possibility of epidural hematoma, subsequent neurological compromise, dural puncture, headaches, spinal cord and/or nerve damage, side effects of steroid medication and poor results regarding pain control. The patient understands and wished to proceed. The patient will return to clinic in approximately 2 weeks for followup. She was counseled as to return appointment, activity level and side effects to be aware of. DIAGNOSIS: Lumbar radiculopathy with lumbar degenerative disk disease. PROCEDURE: Lumbar epidural steroid injection, translaminar approach at L5-S1 level using C-arm fluoroscopic guidance under sterile prep and drape using local anesthetic. MEDICATIONS INJECTED: A total of 120 mg of Depo-Medrol plus 10 mL of preservative-free normal saline and 2 mL of contrast. CONDITION AT DISCHARGE: Stable. The patient tolerated procedure well and no complications. STEVE SILVA MD DR: BENJAMIN/salvador JOB#: [id number] / [id number]
== END ==
LOC: PNCL 08:27
PROVIDERS: ATTEND Anesthesiology
DX: M51.16 Intervertebral disc disorders with radiculopathy, lumbar region (principal)
CPT/HCPCS: 62323; J1030; J1040; Q9965

== ENCOUNTER → 2019-07-27 | Outpatient (CLI) | payer BC ==
--- NOTE | 2019-07-28 05:03 | PAIN ---
DATE OF SERVICE: 07/27/2019 PROGRESS NOTE FOR PAIN CLINIC DIAGNOSIS: Lumbar radiculopathy with lumbar degenerative disk disease. HISTORY OF PRESENT ILLNESS: The patient is a 54-year-old female who returns for followup status post lumbar epidural steroid injection x 2. The patient reports about 40% improvement overall, still pain in the low back and left lower extremity. The patient reports no new motor or sensory deficits. Reports the pain is a 9 on a scale of 10 at its worst in the past week, 7 on average, 7 at its least and is 7 today. The patient reports it is worse with walking, standing with some radiating pain from the low back and the posterior gluteus, posterior thigh, posterior calf on the left side. The patient reports it awakens her from sleep about every 3-4 hours, but is doing better overall. She has been increasing her distance walking, doing work activities, household activities with better ease and comfort, but still has some significant pain. The patient reports it is sharp and dull in the low back radiating and alternating with some shooting pain in the leg as well. PHYSICAL EXAMINATION: VITAL SIGNS: The patient's blood pressure 114/70, pulse 60, respirations 18, temperature 97.2 degrees Fahrenheit, height is 5 feet 10 inches, weight is 176 pounds. GENERAL: The patient is awake, alert, oriented, appropriate, very pleasant demeanor. HEENT: Shows normocephalic, atraumatic. Extraocular movements are intact and symmetrical. Oral cavity: Mucous membranes moist and pink. Dentition is intact. NECK: Shows anterior throat supple without palpable lymphadenopathy noted. Swallow reflex symmetrical. CHEST: Shows normal on inspection. Breath sounds are clear to auscultation bilaterally. HEART: Shows S1, S2 clear. No murmurs auscultated. ABDOMEN: Soft, nontender, nondistended. No palpable organomegaly is noted. No rebound or guarding demonstrated. BACK: Shows spine grossly in the midline. Normal appearing thoracic kyphosis and minor flattening of the lumbar paraspinous curvature. Lumbar paraspinous muscle shows symmetrical on inspection, with palpation shows some moderate tenderness diffusely in the low lumbar distribution bilaterally. The patient has good rotational motion of lumbar spine, both laterally as well as extension and flexion without difficulty. No tenderness over the spinous processes, sacrum or sacroiliac regions. EXTREMITIES: The patient's lower extremities show deep tendon reflexes at 2+ in the patellar, 1+ tendo-calcaneus tendons. Motor exam is approximately 4 on a scale 5 on the left dorsiflexion, extension, 5/5 on the right. Peripheral pulses are 1+ posterior tibia. No peripheral edema is noted bilaterally. Options were discussed with the patient. The patient's old chart was reviewed as her current medication regimen updated. Current review of systems updated today as well. We will proceed with a third in the series of lumbar epidural steroid injection today with fluoroscopic guidance. Risks were again discussed including, but not limited to bleeding, infection, possibility of epidural hematoma, subsequent neurologic compromise, dural puncture, headaches, spinal cord and/or nerve damage, side effects of steroid medication and poor results regarding pain control. The patient understands and wished to proceed. The patient will return to clinic in approximately 2 weeks for followup. She was counseled on return appointment, activity level and side effects to be aware of. DIAGNOSIS: Lumbar radiculopathy with lumbar degenerative disk disease. PROCEDURE: Lumbar epidural steroid injection, translaminar approach L5-S1 level using C-arm fluoroscopic guidance under sterile prep and drape using local anesthetic. MEDICATION INJECTED: A total of 120 mg Depo-Medrol plus 10 mL of preservative-free normal saline and 2 mL of contrast. CONDITION AT DISCHARGE: Stable. The patient tolerated the procedure well, had no complications. STEVE SILVA MD DR: BENJAMIN/salvador JOB#: [id number] / [id number]
== END ==
LOC: PNCL 09:26
PROVIDERS: ATTEND Anesthesiology
DX: M51.16 Intervertebral disc disorders with radiculopathy, lumbar region (principal)
CPT/HCPCS: 62323; J1030; J1040; Q9965

== ENCOUNTER → 2019-09-09 | Outpatient (CLI) | payer BC ==
[~2019-09-09] MED LIST changes: -IOHEXOL 180 MG/ML 10 ML VIAL. ONE; -methylPREDNISolone ACETATE 40 MG/ML VIAL. ONE; -methylPREDNISolone ACETATE 80 MG/ML VIAL. ONE
--- NOTE | 2019-09-09 14:52 | CARD ---
MR#: [id number] Date of Study: 09/09/2019 Ordering Physician: GERARDO OLIVIER, Referring Physician: Blake ESTRADA: Eulalia Armando RDCS APPROVED REPORT INDICATION Arrhythmia PROCEDURE The patient underwent an Exercise Stress Test using the Krzysztof Protocol. Blood pressure, heart rate, a nd EKG were monitored. An Echocardiogram was performed by chemical radiation technician in four stages in quad fashion. At peak stress four se lected images were obtained and placed side by side with resting images for comparison. STRESS ECHO FINDINGS The resting Echocardiogram showed normal left ventricular systolic contractility with an estimated Ej ection Fraction of about 60 %. The Resting Echocardiogram showed normal augmentation of myocardial wall segments using a 16 segment model. The Stress Echocardiogram showed normal augmentation of myocardial wall segments using a 16 segment m tim. The Stress Echocardiogram left ventricular systolic contractility has an estimated Ejection Fraction of about 70%. Test Type: Exercise Stress Nurse/Tech: Roxanne Gilmore RN Test Indications: history of SVT Cardiac History and Allergies: Family history Medications: see EMR Medical History: see EMR Resting ECG: SB Resting Heart Rate: 57 bpm Resting Blood Pressure: 122/68mmHg Pretest Chest Pain: No chest pain Nurse/Tech Notes S1,S2 and lungs clear to auscultation. Stress Symptoms Fatigue POST EXERCISE Reason for Termination: Reached target heart rate Target HR: Yes Max HR: 164 bpm 98% of Maximum Predicted HR: 167 bpm Exercise duration: 8:01 min:sec, 3 Stage Exercise capacity: 10.1METs Max Blood Pressure: 141/53mmHg Blood Pressure response to exercise: Normal blood pressure response during stress. Heart Rate response to exercise: WNL Chest Pain: No. Arrhythmia: No. INTERPRETATION Stress EKG Conclusion: The resting EKG showed a normal sinus rhythm with mild nonspecific ST-T wave c hanges. The stress EKG showed no significant changes from baseline. No EKG evidence of stressed induced ischemia. No significant arrhythmias during the test. Preliminary Notification Critical Value: No <Conclusion> Good exercise tolerance with the patient walking for 8 minutes and 1 seconds on a Krzysztof protocol. No chest pain reported with exertion. No significant arrhythmias with exertion. No EKG evidence of stress-induced ischemia. Baseline LV systolic function is normal. LV response to exertion is normal with no regional wall motion abnormalities. Low risk treadmill stress echo. Signed by : Pardeep Baird MD Electronically Approved : 09/09/2019 14:51:49
== END | disposition home or self-care (01) ==
LOC: ECHO 12:44
PROVIDERS: ATTEND Internal Medicine Cardiovascular Disease
DX: R53.83 Other fatigue (principal); I49.9 Cardiac arrhythmia, unspecified
CPT/HCPCS: 93017; 93350

== ENCOUNTER → 2019-10-27 | Outpatient (CLI) | payer BC ==
[~2019-10-27] MED LIST changes: +IOHEXOL 180 MG/ML 10 ML VIAL. ONE; +methylPREDNISolone ACETATE 40 MG/ML VIAL. ONE; +methylPREDNISolone ACETATE 80 MG/ML VIAL. ONE
--- NOTE | 2019-10-27 16:04 | PAIN ---
DATE OF SERVICE: 10/27/2019 PROGRESS NOTE FOR PAIN CLINIC DIAGNOSES: Lumbar radiculopathy with lumbar degenerative disk disease. HISTORY OF PRESENT ILLNESS: The patient is a 54-year-old female who returns for followup status post lumbar epidural steroid injections x 3, most recently seen on 07/27/2019 for the steroid injections and did very well with about a 75% improvement overall, initially back in 03/2019 had a 100% improvement for about 2 months. Pain just returned now in the low back and right lower extremity greater than the left, but present bilaterally, in the posterior low back into the right and left posterior gluteus, again worse on the right side currently. Initially, it was worse on the left side. The patient reports it has been getting worse now on the right side, but worse with walking, standing, changing positions. She has been decreasing her activity because it is also awaken her from sleep at night, fairly frequently over the past month or so. The patient reports it is a 10 on a scale of 10 at all times, average, worst and its least and is a 10 today, pressure, sharp. The patient reports it is sharp and shooting, becoming more constant in the back, again worse on the right leg, posterior gluteus, posterior thigh and calf, some to the foot occasionally, but mostly just in the leg. The patient reports no new motor or sensory deficits, no new bowel or bladder incontinence or other complications. PHYSICAL EXAMINATION: VITAL SIGNS: The patient's blood pressure is 112/72, pulse 73, respirations 18, temperature 97.8 degrees Fahrenheit, height is 5 feet 10 inches, weight is 184 pounds. GENERAL: The patient is awake, alert, oriented, appropriate, very pleasant demeanor. HEENT: Shows normocephalic, atraumatic. Extraocular movements are intact and symmetrical. Oral cavity: Mucous membranes moist and pink. Dentition is intact. NECK: Shows anterior throat supple without palpable lymphadenopathy noted. Swallow reflex symmetrical. CHEST: Shows normal on inspection. Breath sounds are clear to auscultation bilaterally. HEART: Shows S1, S2 clear. No murmurs auscultated. ABDOMEN: Soft, nontender, nondistended. No palpable organomegaly is noted. No rebound or guarding demonstrated. BACK: Shows spine grossly in the midline. Normal appearing thoracic kyphosis and slightly flattened lumbar lordotic curvature. Lumbar paraspinous muscle shows symmetrical on inspection, on palpation shows some moderate tenderness with moderate pressure and palpation of the lower lumbar distribution only, no radiation is demonstrated. The patient has good rotational motion of lumbar spine, both laterally as well as extension and flexion. EXTREMITIES: Lower extremities show deep tendon reflexes 2+ in the patellar, 1+ tendo-calcaneus tendons. Motor exam is approximately 4 on a scale of 5 with left dorsiflexion, extension, 5/5 on the right. Peripheral pulses are 1+ posterior tibia. No peripheral edema is noted. Options were discussed with the patient. The patient's old chart was reviewed as her current medication regimen updated. Current review of systems updated today as well. We will proceed with a first in this series of lumbar epidural steroid injection today with fluoroscopic guidance. Risks were again discussed including, but not limited to bleeding, infection, possibility of epidural hematoma, subsequent neurological compromise, dural puncture, headaches, spinal cord and/or nerve damage, side effects of steroid medication and poor results regarding pain control. The patient understands and wished to proceed. The patient will return to the clinic in approximately 2 weeks for followup. She was counseled on return appointment, activity level and side effects to be aware of. DIAGNOSES: Lumbar radiculopathy with lumbar degenerative disk disease. PROCEDURE: Lumbar epidural steroid injection, translaminar approach at the L5-S1 level using C-arm fluoroscopic guidance under sterile prep and drape using local anesthetic. MEDICATION INJECTED: A total of 120 mg Depo-Medrol plus 10 mL of preservative-free normal saline and 2 mL of contrast. CONDITION AT DISCHARGE: Stable. The patient tolerated the procedure well, had no complications. STEVE SILVA MD DR: BENJAMIN/salvador JOB#: [id number] / [id number]
== END ==
LOC: PNCL 11:03
PROVIDERS: ATTEND Anesthesiology
DX: M51.16 Intervertebral disc disorders with radiculopathy, lumbar region (principal)
CPT/HCPCS: 62323; J1030; J1040; Q9965

== ENCOUNTER → 2020-03-24 | Outpatient (CLI) | payer BC ==
--- NOTE | 2020-03-24 13:53 | PAIN ---
DATE OF SERVICE: 03/24/2020 PROGRESS NOTE FOR PAIN CLINIC DIAGNOSES: Lumbar radiculopathy with lumbar degenerative disk disease. HISTORY OF PRESENT ILLNESS: The patient is a 54-year-old female who returns for followup status post lumbar epidural steroid injection x 1, last seen 10/27/2019, patient did very well with about 75% improvement initially, now about 40% improvement overall, but it has been since about 4 months since her last injection. The patient reports still about 40% better than it was, but still pain in the low back, right and left lower extremities, slightly more on the left over the past few weeks than the right, but present bilaterally, radiating to posterior gluteus, posterior thighs, posterior calf, mostly in the back and in the gluteus, however. The patient reports it is an 8 on a scale of 10 at its worst over the past week, 8 on average, 7 at its least. The patient reports it is aching and dull, shooting and sharp at times, cramping stable, sometimes constant with activity. The patient reports it awakens her from sleep at night. Initially, she was doing much better with distance walking and work activities, household activities, sleeping much better, but now about every 4 hours, does awaken her from sleep. The patient reports no new motor or sensory deficits, no new bowel or bladder incontinence or other complaints. PHYSICAL EXAMINATION: VITAL SIGNS: The patient's blood pressure is 109/79, pulse 99, respirations 18, temperature 99.0 degrees Fahrenheit, height is 5 feet 10 inches and weight is 176 pounds. GENERAL: The patient is awake, alert, oriented, appropriate, very pleasant demeanor. HEENT: Shows normocephalic, atraumatic. Extraocular movements are intact and symmetrical. Oral cavity: Mucous membranes moist and pink. Dentition is intact. NECK: Shows anterior throat supple without palpable lymphadenopathy noted. Swallow reflex symmetrical. CHEST: Shows normal on inspection. Breath sounds are clear bilaterally. HEART: Shows S1, S2 clear. No murmurs auscultated. ABDOMEN: Soft, nontender, nondistended. No palpable organomegaly is noted. No rebound or guarding demonstrated. BACK: Shows spine grossly in the midline. Normal appearing thoracic kyphosis and some slight flattening of lumbar lordotic curvature. Lumbar paraspinous muscle shows symmetrical on inspection, on palpation shows some moderate tenderness diffusely bilaterally going diffusely without significant radiation. EXTREMITIES: The patient's lower extremities show deep tendon reflexes at 2+ in the patellar, 1+ tendo-calcaneus tendons. Motor exam is approximately 4 on a scale of 5 on the left with dorsiflexion, extension and 5/5 on the right. Peripheral pulses are 1+ posterior tibia. No peripheral edema is noted bilaterally. Options were discussed with the patient. The patient's old chart was reviewed as her current medication regimen updated. Current review of systems updated today as well and we will proceed with a second lumbar epidural steroid injection in this series with fluoroscopic guidance. Risks were discussed including but not limited to bleeding, infection, possibility of epidural hematoma, subsequent neurological compromise, dural puncture, headaches, spinal cord and/or nerve damage, side effects of steroid medication and poor results regarding pain control. The patient understands and wished to proceed. The patient will return to clinic in approximately 2 weeks for followup. She was counseled on return appointment, activity level and side effects to be aware of. DIAGNOSIS: Lumbar radiculopathy with lumbar degenerative disk disease. PROCEDURE: Lumbar epidural steroid injection, translaminar approach L5-S1 level using C-arm fluoroscopic guidance under sterile prep and drape using local anesthetic. MEDICATION INJECTED: A total of 120 mg Depo-Medrol plus 10 mL of preservative-free normal saline and 2 mL of contrast. CONDITION AT DISCHARGE: Stable. The patient tolerated procedure well, had no complications. STEVE SILVA MD DR: BENJAMIN/salvador JOB#: [id number] / [id number]
== END | disposition home or self-care (01) ==
LOC: PNCL 10:01
PROVIDERS: ATTEND Anesthesiology
DX: M51.16 Intervertebral disc disorders with radiculopathy, lumbar region (principal); Z98.890 Other specified postprocedural states; Z88.0 Allergy status to penicillin; Z91.041 Radiographic dye allergy status; Z88.8 Allergy status to other drugs, medicaments and biological substances
CPT/HCPCS: 62323; J1030; J1040; Q9965

== ENCOUNTER → 2020-06-23 | Outpatient (CLI) | payer BC ==
--- NOTE | 2020-06-23 11:21 | PDOC ---
Progress Note - Pain Clinic Date of Service: DOS: DATE: 06/23/20 TIME: 11:17 Diagnosis: Dx: Lumbar taken off with lumbar degenerative disc disease History or Present Illness: HPI: Mrs. Padgett 54-year-old female turns follow-up status post lumbar procedure injection x2 most recently March 24, 2020 with about a 60% improvement in the low back and left lower extremity pain. Reports now the pain is across the low back worse on the left side with some on the right side as well as a sharp and shooting across the back coming more constant. Patient reports has been working 7 days a week with overtime she works at the nearby [employer] and has been working more shifts causing a pain to be more noticeable increasing waking her from sleep about every 4-5 hours. Patient reports its sharp and shooting can be constant with activity bending stooping walking standing. Her extra shifts at work is required to do more physical work as well which is on her feet more than she would be normally. Patient reports her pain is a 9 on scale of 10 is worse of the past week 7 on average 7 at its least is a 7 today. Reports no new motor or sensory deficits no new bowel or bladder incontinence or other complaints. Physical Exam: VS: Blood pressure is 107/68 pulse 66 respirations are 20 temperature 9010.9 F height is 5 feet 10 inches weight is 1 8 4 pounds PE: PHYSICAL EXAMINATION: GENERAL: The patient is awake, alert, oriented, appropriate, very pleasant demeanor HEENT: Shows normocephalic, atraumatic. Extraocular movements are intact and symmetrical. Oral cavity: Mucous membranes moist and pink. Dentition is inta ct. NECK: Shows anterior throat supple without palpable lymphadenopathy noted. Swallow reflex symmetrical. CHEST: Shows normal on inspection. Breath sounds are clear bilaterally. HEART: Shows S1, S2 clear. No murmurs auscultated. ABDOMEN: Soft, nontender, nondistended. No palpable organomegaly is noted. No rebound or guarding demonstrated. BACK: Shows spine grossly in the midline. Normal-appearing cervical lordotic curvature. There is slightly increased thoracic kyphosis, some minor flattening of the lumbar lordotic curvature. Lumbar paraspinous muscles show symmetrical on inspection, on palpation shows some moderate tenderness diffusely throughout the upper, middle and lower distribution of the paraspinous muscles bilaterally without specific trigger points, without radiation of pain. The patient has good rotational motion of the lumbar spine, both laterally as well as extension and flexion without significant difficulty. No tenderness over the spinous processes, sacrum or sacroiliac regions. EXTREMITIES: Lower extremities show deep tendon reflexes 2+ in the patellar and tendo calcaneus tendons. Motor exam is 5 on a scale of 5 with right dorsiflexion, extension, quadriceps and hamstring flexion and 4/5 on the left. Peripheral pulses are 1+ posterior tibial. No peripheral edema is noted bilaterally. Lower extremities are warm and dry to touch, equal in color and appearance. Straight leg raise noted to be negative on the right , left side is negative as well. Gaenslen's and Robert's maneuvers are negative as well. The patient is able to stand stand on her toes walk without significant impairment or favoring of the right or left lower extremities and without assisting devices. SKIN: Shows warm and dry, good turgor. No edema. No sores, rashes or bruising throughout. Options were discussed with the patient. The patient's old chart was reviewed and current medication regimen updated. [] Procedure: Procedure: Options were discussed with the patient and patient would like to proceed with third lumbar epidural steroid injection in the series. Patient chart was reviewed his current medication regimen updated current review of systems updated today as well. Risks discussed including but not limited to bleeding infection possibility of epidural hematoma subsequent neurological compromise dural puncture headache spinal cord and or nerve damage side effects of steroid medication and poor results guarding pain control. Patient understands wishes to proceed. Medication Injected: Med Injected: Procedure is lumbar epidural steroid injection under local anesthetic using sterile prep and drape at the L5-S1 level using C-arm fluoroscopic guidance in both AP and lateral views medications injected is 120 mg Depo-Medrol + 10 mL preservative-free normal saline and 2 mL Isovue for contrast- condition at discharge is stable patient tolerated procedure well had no complications. Condition at Discharge: Condition at Discharge: Condition at discharge stable patient on the procedure well had no complications. Return to clinic in approximate 2 weeks or as necessary. STEVE SILVA MD Jun 23, 2020 11:21
== END | disposition home or self-care (01) ==
LOC: PNCL 10:13
PROVIDERS: ATTEND Anesthesiology
DX: M51.36 Other intervertebral disc degeneration, lumbar region (principal); Z88.0 Allergy status to penicillin; Z88.8 Allergy status to other drugs, medicaments and biological substances; Z79.899 Other long term (current) drug therapy; Z87.891 Personal history of nicotine dependence
CPT/HCPCS: 62323; J1030; J1040; Q9965

== ENCOUNTER 2020-08-07 08:42 | Emergency (ER) | payer BC ==
[~2020-08-07] VITALS: Ht 177.8 cm; Wt 81.0 kg
[~2020-08-07 08:42] MED LIST changes: -IOHEXOL 180 MG/ML 10 ML VIAL. ONE; -methylPREDNISolone ACETATE 40 MG/ML VIAL. ONE; -methylPREDNISolone ACETATE 80 MG/ML VIAL. ONE
[2020-08-07 08:45] VITALS: BP 125/74
--- NOTE | 2020-08-07 08:54 | PHYS DOC ---
Past Medical History Past Medical History: No Pertinent History Past Surgical History: Hysterectomy Smoking Status: Former Smoker Alcohol Use: None Drug Use: Marijuana General Adult EDM: Chief Complaint: EYE PROBLEMS HPI: HPI: Patient is a 55-year-old female who presents with complaint of left eye pain. Patient states yesterday she attempted to remove a contact lens and thinks that she scratched her eye. She states that she is 100% certain that she remove the entirety of the contact lens. She was seen in urgent care facility yesterday and was told she has a retained foreign body overlying her cornea. She states multiple attempts were made at the urgent care to remove the foreign body but were unsuccessful. She states the urgent care provider told her to report to the emergency department yesterday however she states her eye was too uncomfortable and she waited to present today. She states she was not discharged home with any medicine. Denies headaches. Does note her eyes somewhat red with watery discharge. Does note some mild eye soreness. Denies any trauma to the eye. Unsure of last tetanus. No other complaints. Review of Systems: Review of Systems: Constitutional: Denies fever or chills. [] Eyes: Positive for eye pain and watery discharge HENT: Denies nasal congestion or sore throat. [] Respiratory: Denies cough or shortness of breath. [] Cardiovascular: Denies chest pain or edema. [] GI: Denies abdominal pain, nausea, vomiting, bloody stools or diarrhea. [] : Denies dysuria. [] Musculoskeletal: Denies back pain or joint pain. [] Integument: Denies rash. [] Neurologic: Denies headache, focal weakness or sensory changes. [] Endocrine: Denies polyuria or polydipsia. [] Lymphatic: Denies swollen glands. [] Psychiatric: Denies depression or anxiety. [] Heart Score: Risk Factors: Risk Factors: DM, Current or recent (<one month) smoker, HTN, HLP, family history of CAD, obesity. Risk Scores: Score 0 - 3: 2.5% MACE over next 6 weeks - Discharge Home Score 4 - 6: 20.3% MACE over next 6 weeks - Admit for Clinical Observation Score 7 - 10: 72.7% MACE over next 6 weeks - Early Invasive Strategies Allergies: Allergies: Allergies Coded Allergies Type Severity Reaction Last Updated Verified Iodine and Iodide Containing Produc Allergy Intermediate Unknown 5/6/20 Yes Penicillins Allergy Intermediate Unknown 03/23/20 Yes ibuprofen Allergy Intermediate Unknown 03/23/20 Yes Physical Exam: PE: Constitutional: Well developed, well nourished, no acute distress, non-toxic appearance. [] HENT: Normocephalic, atraumatic, bilateral external ears normal, oropharynx moist, no oral exudates, nose normal. [] Neck: Normal range of motion, no tenderness, supple, no stridor. [] Cardiovascular:Heart rate regular rhythm, no murmur [] Lungs & Thorax: Bilateral breath sounds clear to auscultation [] Abdomen:soft, no tenderness, no masses, no pulsatile masses. [] Skin: Warm, dry, no erythema, no rash. [] Back: No tenderness, no CVA tenderness. [] Extremities: No tenderness, no cyanosis, no clubbing, ROM intact, no edema. [] Neurologic: Alert and oriented X 3, normal motor function, normal sensory function, no focal deficits noted. [] Psychologic: Affect normal, judgement normal, mood normal. [] EYES: 20/25 OD 20/25 OS 20/25 OU. There are no visual field deficits. IOP: 14 OD 14 OS. Pupil OD: 3 to 2 OS 3 to 2 mm briskly reactive with no APD present, ERRLA. OS ophthalmic exam: The periorbital region is without erythema or edema. There is no bony tenderness of the bone(s) of the orbital rim. There is no proptosis. There is no blepharedema. The margins of the eyelid are intact without lacerations. The lacrimal system appears intact. EOMI without evidence of entrapment. Cornea is clear without hyphema or hypopyon. Conjunctiva slightly injected. There is no subconjunctival hemorrhage. Sclera intact without laceration. Ambar sign under slit-lamp examination is negative. Fluorescein staining does demonstrate abnormal uptake at the 11 o'clock position. Anterior chamber was inspected with no cell and no flare identified. No foreign bodies identified. Current Patient Data: Vital Signs: Vital Signs Date Time Temp Pulse Resp B/P (MAP) Pulse Ox O2 Delivery O2 Flow Rate FiO2 08/07/20 08:45 98.3 73 14 125/74 (91) 97 Room Air 98.3 EKG: EKG: [] Radiology/Procedures: Radiology/Procedures: [] Course & Med Decision Making: Course & Med Decision Making Pertinent Labs and Imaging studies reviewed. (See chart for details) [] Dragon Disclaimer: Soumya Disclaimer: This electronic medical record was generated, in whole or in part, using a voice recognition dictation system. Departure Departure Impression: Primary Impression: Corneal abrasion, left Qualified Codes: S05.02XA - Injury of conjunctiva and corneal abrasion without foreign body, left eye, initial encounter Disposition: HOME, SELF-CARE Condition: STABLE Referrals: BRIAN AKERS (PCP) Patient Instructions: Eye - Corneal Abrasion Additional Instructions: Please follow-up with your eye doctor in the next 2 to 3 days. Scripts Ketorolac Tromethamine (KETOROLAC TROMETHAMINE) 5 Ml Drops 1 DROP EACHEYE QID for itching, #5 ML 0 Refills Prov: CORNELIO RBANDON DO 08/07/20 Erythromycin Base (Erythromycin) 1 Gm Oint...g. 0.5 INCH OP Q4-6HRS for 7 Days, [facility] Prov: CORNELIO BRANDON DO 08/07/20 Justicifation of Admission Dx: Justifications for Admission: Justification of Admission Dx: N/A CORNELIO BRANDON DO Aug 07, 2020 08:54
[2020-08-07] MEDS ORDERED: PROPARACAINE 0.5% OPHTH SOLUTION 15ML BOTTLE. OS ONE (09:00)
[2020-08-07] MEDS ORDERED: FLUORESCEIN OPHTH TEST STRIP. OS ONE (09:00)
[2020-08-07] MEDS ORDERED: KETO5DRO24 EACHEYE (09:23)
[2020-08-07] MEDS ORDERED: ERYT1OIN6 OP (09:23)
[2020-08-07] MEDS ORDERED: DIPH,PERTUSS(ACELL),TET VAC/PF 0.5 ML SYRINGE. VAX IM ONE (09:30)
== END 2020-08-07 09:43 | disposition home or self-care (01) ==
LOC: ER 08:42
DX: S05.02XA Injury of conjunctiva and corneal abrasion without foreign body, left eye, initial encounter (principal); H57.12 Ocular pain, left eye; F12.90 Cannabis use, unspecified, uncomplicated; Z90.710 Acquired absence of both cervix and uterus; Z87.891 Personal history of nicotine dependence; Z88.0 Allergy status to penicillin; Z88.6 Allergy status to analgesic agent; Z91.040 Latex allergy status; Y29.XXXA Contact with blunt object, undetermined intent, initial encounter; Y93.89 Activity, other specified; Y92.89 Other specified places as the place of occurrence of the external cause; Y99.8 Other external cause status
CPT/HCPCS: 90471; 90715; 99283

== ENCOUNTER → 2021-03-01 | Outpatient (CLI) | payer BC ==
[~2021-03-01] MED LIST changes: +ERYT1OIN6 OP; +IOHEXOL 180 MG/ML 10 ML VIAL. ONE; +KETO5DRO24 EACHEYE; +methylPREDNISolone ACETATE 40 MG/ML VIAL. ONE; +methylPREDNISolone ACETATE 80 MG/ML VIAL. ONE
--- NOTE | 2021-03-01 10:41 | PDOC ---
Progress Note - Pain Clinic Date of Service: DOS: DATE: 03/01/21 TIME: 10:38 Diagnosis: Dx: Lumbar radiculopathy with lumbar degenerative disc disease History or Present Illness: HPI: 55-year-old female returns follow-up status post lumbar pleural steroid injections last seen June 23, 2020 patient did very well about 90% improvement first 2 to 3 months after the injection patient reports pain returning in the low back and left lower extremity posterior gluteus posterior thigh posterior calf without any specific injury or accident that she is aware of but is been getting worse with time patient reports is a 9 on scale 10 is worse over the past week 9 on average 8 its least is a 8 today. Patient reports it is a sharp and shooting pain constant in the low back left lower extremity. No pain in the right lower extremity. Patient scribes pain is constant sharp and shooting in the low back and left leg dull and aching in the low back. Patient reports is been waking her from sleep about every 2-3 hours worse with walking standing changing positions better with sitting or laying down but again waking her from sleep at night. Patient reports no new motor or sensory deficits no new bowel or bladder incontinence. Physical Exam: VS: Blood pressure is 126/89 pulse 78 respirations 18 temperature 98.0 F height is 5 foot 10 inches weight is 178 pounds PE: PHYSICAL EXAMINATION: GENERAL: The patient is awake, alert, oriented, appropriate, very pleasant demeanor HEENT: Shows normocephalic, atraumatic. Extraocular movements are intact and symmetrical. Oral cavity: Mucous membranes moist and pink. NECK: Shows anterior throat supple without palpable lymphadenopathy noted. Swallow reflex symmetrical. CHEST: Shows normal on inspection. Breath sounds are clear bilaterally, no rales rhonchi wheezes auscultated. HEART: Shows S1, S2 clear. No murmurs auscultated. ABDOMEN: Soft, nontender, nondistended, obese. No palpable organomegaly is noted. No rebound or guarding demonstrated. BACK: Shows spine grossly in the midline. Normal-appearing cervical lordotic curvature. There is slightly increased thoracic kyphosis, some minor flattening of the lumbar lordotic curvature. Lumbar paraspinous muscles show symmetrical on inspection, on palpation shows some moderate tenderness diffusely throughout the upper, middle and lower distribution of the paraspinous muscles, but without specific trigger points, without radiation of pain. The patient has good rotational motion of the lumbar spine, both laterally as well as extension and flexion without significant difficulty. No tenderness over the spinous processes, sacrum or sacroiliac regions. EXTREMITIES: Lower extremities show deep tendon reflexes 2+ in the patellar and tendo calcaneus tendons. Motor exam is 5 on a scale of 5 with right dorsiflexion, extension, quadriceps and hamstring flexion and 4/5 on the left. Peripheral pulses are 1+ posterior tibial. No peripheral edema is noted bilaterally. Lower extremities are warm and dry to touch, equal in color and appearance. SKIN: Shows warm and dry, good turgor. No edema. No sores, rashes or bruising throughout. Procedure: Procedure: Options discussed with the patient. Patient chart reviews her current medication regimen updated current review of systems updated today as well. We will proceed with a first in the series lumbar epidural steroid traction stable fluoroscopic guidance. Risks were discussed including but not limited to: Bleeding, infection, possibility of epidural hematoma and subsequent neurological compromise, dural puncture, headaches, spinal cord and/or nerve damage, side effects of steroid medication, and poor results regarding pain control. Patient understands and wished to proceed. Return to clinic approximate 2 weeks for follow-up, was counseled as return appointment to fill and side effects to be aware of. Medication Injected: Med Injected: Procedure is lumbar epidural steroid injection under local anesthetic using sterile prep and drape at the L5-S1 level using C-arm fluoroscopic guidance in both AP and lateral views medications injected is 120 mg Depo-Medrol + 10 mL preservative-free normal saline and 2 mL contrast- condition at discharge is stable patient tolerated procedure well had no complications. Condition at Discharge: Condition at Discharge: Condition at discharge stable, patient alert procedure well and had no complications. STEVE SILVA MD Mar 01, 2021 10:40
== END | disposition home or self-care (01) ==
LOC: PNCL 09:54
PROVIDERS: ATTEND Anesthesiology
DX: M51.16 Intervertebral disc disorders with radiculopathy, lumbar region (principal); Z79.899 Other long term (current) drug therapy; Z87.891 Personal history of nicotine dependence; Z79.82 Long term (current) use of aspirin; Z88.0 Allergy status to penicillin; Z91.041 Radiographic dye allergy status; Z88.8 Allergy status to other drugs, medicaments and biological substances
CPT/HCPCS: 62323; J1030; J1040; Q9965

== ENCOUNTER → 2021-04-27 | Outpatient (CLI) | payer BC ==
[~2021-04-27] MED LIST changes: +METO-239 PO; +SERT50TA PO; +TRAZ-118 PO
--- NOTE | 2021-04-27 09:39 | PDOC ---
Progress Note - Pain Clinic Date of Service: DOS: DATE: 04/27/21 TIME: 09:36 Diagnosis: Dx: Lumbar radiculopathy with lumbar degenerative disc disease History or Present Illness: HPI: 55-year-old female returns for follow-up status post lumbar epidural steroid injection x1. Patient reports about 70% improvement after the injection for several weeks pain still improved but returning in the low back left lower extremity posterior gluteus posterior thigh posterior calf not to the level was but still becoming more noticeable each week. Patient reports initially she is doing much better walking distances doing household activities is getting ready to return to work next week as well patient reports that she is sleeping better at night but occasionally wakes her from sleep patient reports her pain is an 8 on scale 10 is worse over the past week 8 on average 6 its least is a 6 today patient ports aching and tight in the back shooting and stabbing can be constant in the left lower extremity. Patient reports her left leg still feels weak but no overt motor loss. Patient reports no new motor or sensory deficits no new bowel or bladder incontinence or other complaints. Physical Exam: VS: Blood pressure is 125/73 pulse 66 respirations are 16 temperature is height is 5 feet 10 inches weight is 182 pounds PE: PHYSICAL EXAMINATION: GENERAL: The patient is awake, alert, oriented, appropriate, very pleasant demeanor HEENT: Shows normocephalic, atraumatic. Extraocular movements are intact and symmetrical. Oral cavity: Mucous membranes moist and pink. Dentition is intact. NECK: Shows anterior throat supple without palpable lymphadenopathy noted. Swallow reflex symmetrical. CHEST: Shows normal on inspection. Breath sounds are clear bilaterally, no rales or rhonchi. HEART: Shows S1, S2 clear. No murmurs auscultated. ABDOMEN: Soft, nontender, nondistended, obese. No palpable organomegaly is noted. BACK: Shows spine grossly in the midline. Normal-appearing cervical lordotic curvature. There is slightly increased thoracic kyphosis, some minor flattening of the lumbar lordotic curvature. Lumbar paraspinous muscles show symmetrical on inspection, on palpation shows some moderate tenderness diffusely throughout the upper, middle and lower distribution of the paraspinous muscles, but without specific trigger points, without radiation of pain. The patient has good rotational motion of the lumbar spine, both laterally as well as extension and flexion without significant difficulty. EXTREMITIES: Lower extremities show deep tendon reflexes 2 in the patellar and tendo calcaneus tendons. Motor exam is 5 on a scale of 5 with right dorsiflexion, extension, quadriceps and hamstring flexion and 4/5 on the left. Peripheral pulses are 1+ posterior tibial. No peripheral edema is noted bilaterally. Lower extremities are warm and dry. SKIN: Shows warm and dry, good turgor. No edema. No sores, rashes or bruising throughout. Procedure: Procedure: Options were discussed with patient. Patient chart reviews her current medication regimen updated current review of systems updated today as well. We will proceed with a second in the series lumbar epidural steroid injection today with fluoroscopic guidance. Risks were discussed including but not limited to: Bleeding, infection, possibility of epidural hematoma and subsequent neurological compromise, dural puncture, headaches, spinal cord and/or nerve damage, side effects of steroid medication, and poor results regarding pain control. Patient understands and wished to proceed. Patient will return to the clinic in approximate 2 weeks for follow-up, was counseled as to return appointment activity level and side effects to be aware of. Medication Injected: Med Injected: Procedure is lumbar epidural steroid injection under local anesthetic using sterile prep and drape at the L5-S1 level using C-arm fluoroscopic guidance in both AP and lateral views medications injected is 120 mg Depo-Medrol +10mL preservative-free normal saline and 2 mL contrast- condition at discharge is stable patient tolerated procedure well had no complications. Condition at Discharge: Condition at Discharge: Condition at discharge stable, patient tolerated procedure well and had no complications. STEVE SILVA MD Apr 27, 2021 09:39
--- NOTE | 2021-04-27 09:39 | PDOC4 ---
PROCEDURE Procedure Patient was consented for lumbar epidural steroid injection. Risks were dis cussed including but not limited to: Bleeding, infection, possibility of epidural hematoma and subsequent neurological compromise, dural puncture, headaches, spinal cord and/or nerve damage, side effects of steroid medication, and poor results regarding pain control. Patient understands and wished to proceed. Procedure is lumbar epidural steroid injection under local anesthetic using sterile prep and drape at the L5 S1 level using C-arm fluoroscopic guidance in both AP and lateral views medications injected is 120 mg Depo-Medrol +10mL preservative-free normal saline and 2 mL contrast- condition at discharge is stable patient tolerated procedure well had no complications. STEVE SILVA MD Apr 27, 2021 09:39
== END | disposition home or self-care (01) ==
LOC: PNCL 08:47
PROVIDERS: ATTEND Anesthesiology
DX: M51.16 Intervertebral disc disorders with radiculopathy, lumbar region (principal); Z79.899 Other long term (current) drug therapy; Z91.041 Radiographic dye allergy status; Z88.0 Allergy status to penicillin; Z88.1 Allergy status to other antibiotic agents; Z88.8 Allergy status to other drugs, medicaments and biological substances; Z87.891 Personal history of nicotine dependence
CPT/HCPCS: 62323; J1030; J1040; Q9965

== ENCOUNTER → 2021-09-13 | Outpatient (CLI) | payer BC ==
[~2021-09-13] MED LIST changes: +CYCL10TA19 PO; -CYCL10TA2 PO; -ESTR2TAB PO; +ESTR2TAB3 PO
--- NOTE | 2021-09-13 08:20 | PDOC ---
Progress Note - Pain Clinic Date of Service: DOS: DATE: 09/13/21 TIME: 08:16 Diagnosis: Dx: Lumbar radiculopathy with lumbar degenerative disc disease History or Present Illness: HPI: 56-year-old female returns for follow-up last seen April 2021 patient did very well after lumbar epidural steroid injection about 2 to 3 months 80% improvement in her low back and left lower extremity patient reports the pain is returning now over the past 4 weeks or so is getting much worse across the low back and into the left lower extremity radiating posterior gluteus posterior thigh posterior calf lateral calf and into the heel and ankle as well as the foot on the left side patient reports that the pain is now on the right side of the low back as well which is new for her generally was just on the left or on the leg only now is across the low back right and left patient reports is a 10 on scale 10 is worse with the past week 10 on average 8 its least and is a 10 today patient ports shooting aching in the back and leg constant can be unbearable with walking and standing patient reports waking her from sleep every 2-3 hours initially to do much better with distance walking doing household activities work activities travel with greater ease and comfort now the pain is returning fairly significantly. Patient reports again worse in the low back on the right side and the left side patient reports no bowel or bladder incontinence. Patient reports having difficulty walking as her leg is very painful with weightbearing but does not use any assistive devices. Physical Exam: VS: Blood pressure is 132/82 pulse 83 respirations are 18 temperature 98.6 F height is 5 feet 10 inches weight is 191 PE: PHYSICAL EXAMINATION: GENERAL: The patient is awake, alert, oriented, appropriate, very pleasant in demeanor HEENT: Shows normocephalic, atraumatic. Extraocular movements are intact and symmetrical. Oral cavity: Mucous membranes moist and pink. Dentition is intact. NECK: Shows anterior throat supple without palpable lymphadenopathy noted. Swallow reflex symmetrical. CHEST: Shows normal on inspection. Breath sounds are clear bilaterally, no rales rhonchi wheezes auscultated. HEART: Shows S1, S2 clear. No murmurs auscultated. ABDOMEN: Soft, nontender, nondistended, obese. No palpable organomegaly is noted. BACK: Shows spine grossly in the midline. Normal-appearing cervical lordotic curvature. There is increased thoracic kyphosis, some mild flattening of the lumbar lordotic curvature. Lumbar paraspinous muscles show symmetrical on inspection, on palpation shows some moderate tenderness diffusely throughout the upper, middle and lower distribution of the paraspinous muscles, but without specific trigger points, without radiation of pain. The patient has good rotational motion of the lumbar spine, both laterally as well as extension and flexion without significant difficulty. EXTREMITIES: Lower extremities show deep tendon reflexes 2+ in the patellar and tendo calcaneus tendons. Motor exam is 5 on a scale of 5 with right dorsiflexion, extension, quadriceps and hamstring flexion and 4/5 on the left. Peripheral pulses are 1 posterior tibial. No peripheral edema is noted bilaterally. Lower extremities are warm and dry to touch, equal in color and appearance. SKIN: Shows warm and dry, good turgor. No edema. No sores, rashes or bruising throughout. Procedure: Procedure: Options were discussed with patient. Patient chart reviews her current medication regimen updated current review of systems updated today as well. We will proceed with a lumbar epidural steroid injection today with fluoroscopic guidance risks were discussed including but not limited to: Bleeding, infection, possibility of epidural hematoma and subsequent neurological compromise, dural puncture, headaches, spinal cord and/or nerve damage, side effects of steroid medication, and poor results regarding pain control. Patient understands and wished to proceed. Patient return to clinic in approximately 4 weeks for follow-up, was counseled as to return appointment, activity level, and side effects to be aware of. Medication Injected: Med Injected: Procedure is lumbar epidural steroid injection under local anesthetic using sterile prep and drape at the L5-S1 level using C-arm fluoroscopic guidance in both AP and lateral views medications injected is 120 mg Depo-Medrol +10mL preservative-free normal saline and 2 mL contrast- condition at discharge is stable patient tolerated procedure well had no complications. Condition at Discharge: Condition at Discharge: Condition at discharge stable, patient already procedure well and had no complications. STEVE SILVA MD Sep 13, 2021 08:20
--- NOTE | 2021-09-13 08:21 | PDOC4 ---
Procedure Note: ICD 10 Code: ICD 10 Code: M 54.17 M 51.87 Procedure Note: Patient was consented for lumbar epidural steroid injection with fluoroscopic guidance. Risks were discussed including but not limited to: Bleeding, infection, possibility of epidural hematoma and subsequent neurological compromise, dural puncture, headaches, spinal cord and/or nerve damage, side effects of steroid medication, and poor results regarding pain control. Patient understands and wished to proceed. Procedure is lumbar epidural steroid injection under local anesthetic using sterile prep and drape at the L5-S1 level using C-arm fluoroscopic guidance in both AP and lateral views medications injected is 120 mg Depo-Medrol +10mL preservative-free normal saline and 2 mL contrast- condition at discharge is stable patient tolerated procedure well had no complications. STEVE SILVA MD Sep 13, 2021 08:20
== END | disposition home or self-care (01) ==
LOC: PNCL 07:53
PROVIDERS: ATTEND Anesthesiology
DX: M51.16 Intervertebral disc disorders with radiculopathy, lumbar region (principal); Z87.891 Personal history of nicotine dependence; Z79.899 Other long term (current) drug therapy; Z91.041 Radiographic dye allergy status; Z88.0 Allergy status to penicillin; Z88.8 Allergy status to other drugs, medicaments and biological substances
CPT/HCPCS: 62323; J1030; J1040; Q9965

== ENCOUNTER → 2021-10-17 | Outpatient (CLI) | payer BC ==
--- NOTE | 2021-10-17 10:37 | PDOC ---
Progress Note - Pain Clinic Date of Service: DOS: DATE: 10/17/21 TIME: 10:34 Diagnosis: Dx: Lumbar radiculopathy with lumbar degenerative disc disease History or Present Illness: HPI: 56-year-old female returns for follow-up status post lumbar epidural steroid injection September 13, 2000 Pseudox-M. Patient reports about 70% improvement in the low back and left lower extremity pain patient reports still has some pain across the low back now and some on the right side as well which is new for her is always been on the left side the pain the leg is doing much better however and in the back pain is still persistent patient reports is a 9 on scale 10 is worse over the past week 8 on average 7 its least and is a 7 today. Patient reports is aching and dull tight and shooting at times into the lower extremities on the left side but much better than it was. Patient reports no bowel or bladder incontinence reports initially she [place] better walking doing distance traveling working sleeping better at night now is waking her from sleep about every 2-3 hours. Patient reports no bowel or bladder incontinence no motor or sensory deficits but significant fatigability of both the lower extremities with ambulation and standing. Physical Exam: VS: Blood pressure is 123/81 pulse 98 respirations are 18 temperature is 98.1 F height is 5 foot 10 inches weight is 187 pounds PE: PHYSICAL EXAMINATION: GENERAL: The patient is awake, alert, oriented, appropriate, very pleasant in demeanor HEENT: Shows normocephalic, atraumatic. Extraocular movements are intact and symmetrical. Oral cavity: Mucous membranes moist and pink. Dentition is intact. NECK: Shows anterior throat supple without palpable lymphadenopathy noted. Swallow reflex symmetrical. CHEST: Shows normal on inspection. Breath sounds are clear bilaterally, distant but no rales or rhonchi. HEART: Shows S1, S2 clear. No murmurs auscultated. ABDOMEN: Soft, nontender, nondistended. No palpable organomegaly is noted. BACK: Shows spine grossly in the midline. Normal-appearing cervical lordotic curvature. There is slightly increased thoracic kyphosis, some minor flattening of the lumbar lordotic curvature. Lumbar paraspinous muscles show symmetrical on inspection, on palpation shows some moderate tenderness diffusely throughout the upper, middle and lower distribution of the paraspinous muscles without spec ific trigger points, without radiation of pain. The patient has good rotational motion of the lumbar spine, both laterally as well as extension and flexion without significant difficulty. EXTREMITIES: Lower extremities show deep tendon reflexes 2 in the patellar and tendo calcaneus tendons. Motor exam is 5 on a scale of 5 with right dorsiflexion, extension, quadriceps and hamstring flexion and 4/5 on the left. Peripheral pulses are 1+ posterior tibial. No peripheral edema is noted bilaterally. Lower extremities are warm and dry to touch, equal in color and appearance. SKIN: Shows warm and dry, good turgor. No edema. No sores, rashes or bruising throughout. Procedure: Procedure: Options were discussed with patient. Patient chart was reviewed as her current medication regimen updated current review of systems updated today as well. We will proceed with a lumbar epidural steroid injection today with fluoroscopic guidance. Risks were discussed including but not limited to: Bleeding, infection, possibility of epidural hematoma and subsequent neurological compromise, dural puncture, headaches, spinal cord and/or nerve damage, side effects of steroid medication, and poor results regarding pain control. Patient understands and wished to proceed. Patient will return to the clinic in approximate 2 weeks for follow-up, was counseled as return appointment, activity level, and side effect to be aware of. Medication Injected: Med Injected: Procedure is lumbar epidural steroid injection under local anesthetic using sterile prep and drape at the L5-S1 level using C-arm fluoroscopic guidance in both AP and lateral views medications injected is 120 mg Depo-Medrol +10mL preservative-free normal saline and 2 mL contrast- condition at discharge is stable patient tolerated procedure well had no complications. Condition at Discharge: Condition at Discharge: Condition at discharge is stable, patient tolerated the procedure well and had no complications. STEVE SILVA MD Oct 17, 2021 10:37
--- NOTE | 2021-10-17 10:38 | PDOC4 ---
Procedure Note: ICD 10 Code: ICD 10 Code: M54.17 M51.87 Procedure Note: Patient was consented for lumbar epidural steroid injection with fluoroscopic guidance. Risks were discussed including but not limited to: Bleeding, infection, possibility of epidural hematoma and subsequent neurological compromise, dural puncture, headaches, spinal cord and/or nerve damage, side effects of steroid medication, and poor results regarding pain control. Patient understands and wished to proceed. Procedure is lumbar epidural steroid injection under local anesthetic using sterile prep and drape at the L5-S1 level using C-arm fluoroscopic guidance in both AP and lateral views medications injected is 120 mg Depo-Medrol +10mL preservative-free normal saline and 2 mL contrast- condition at discharge is stable patient tolerated procedure well had no complications. STEVE SILVA MD Oct 17, 2021 10:38
== END | disposition home or self-care (01) ==
LOC: PNCL 09:53
PROVIDERS: ATTEND Anesthesiology
DX: M51.16 Intervertebral disc disorders with radiculopathy, lumbar region (principal); Z87.891 Personal history of nicotine dependence; Z79.899 Other long term (current) drug therapy; Z98.890 Other specified postprocedural states; Z88.0 Allergy status to penicillin; Z91.041 Radiographic dye allergy status; Z88.8 Allergy status to other drugs, medicaments and biological substances
CPT/HCPCS: 62323; J1030; J1040; Q9965

== ENCOUNTER → 2021-11-21 | Outpatient (CLI) | payer BC ==
--- NOTE | 2021-11-21 09:54 | PDOC ---
Progress Note - Pain Clinic Date of Service: DOS: DATE: 11/21/21 TIME: 09:50 Diagnosis: Dx: Lumbar radiculopathy with lumbar degenerative disc disease History or Present Illness: HPI: 56-year-old female returns for follow-up status post lumbar epidural steroid injection x2 patient reports very about 80% improvement until about 1 week ago the pain returned significantly patient reports it is actually worse than it was at baseline prior to any of her treatments patient reports that the pain is increasing the low back left posterior gluteus posterior thigh posterior calf and lateral calf and thigh of the foot on the left side which is difficult to weight-bear as well patient reports no motor loss but significant fatigability of the left leg is having difficulty bearing weight on presentation today patient rates the pain as a 10 on a scale of 10 is worse least and average over the past week 10 today as well patient reports its been getting much worse over the past week without any specific injury or accident patient reports no bowel or bladder incontinence however no loss of motor function but significant fatigability and difficulty with weightbearing on the left leg. Patient is taking aspirin up to three times daily which helps decrease the pain but only minimally patient reports no other avenues have helped she is doing stretching strengthening exercises as well has heat applications on the back and stre tching. Patient scribes pain is tight dull shooting severe unbearable at times can be constant with weightbearing on the left leg. Physical Exam: VS: Blood pressure is 124/80 pulse 88 respirations 18 temperature 98.0 Weight is 188 pounds PE: PHYSICAL EXAMINATION: GENERAL: The patient is awake, alert, oriented, appropriate, very pleasant and demeanor HEENT: Shows normocephalic, atraumatic. Extraocular movements are intact and symmetrical. Oral cavity: Mucous membranes moist and pink. Dentition is intact. NECK: Shows anterior throat supple without palpable lymphadenopathy noted. Swallow reflex symmetrical. CHEST: Shows normal on inspection. Breath sounds are clear bilaterally. HEART: Shows S1, S2 clear. No murmurs auscultated. ABDOMEN: Soft, nontender, nondistended. No palpable organomegaly is noted. BACK: Shows spine grossly in the midline. Normal-appearing cervical lordotic curvature. There is increased thoracic kyphosis, some minor flattening of the lumbar lordotic curvature. Lumbar paraspinous muscles show symmetrical on inspection, on palpation shows some moderate tenderness diffusely throughout the upper, middle and lower distribution of the paraspinous muscles, but without specific trigger points, without radiation of pain. The patient has good rotational motion of the lumbar spine, both laterally as well as extension and flexion without significant difficulty. EXTREMITIES: Lower extremities show deep tendon reflexes 2+ in the patellar and tendo calcaneus tendons. Motor exam is five on a scale of 5 with right dorsiflexion, extension, quadriceps and hamstring flexion and three/5 on the left. Peripheral pulses are 1+ posterior tibial. No peripheral edema is noted bilaterally. Lower extremities are warm and dry. SKIN: Shows warm and dry, good turgor. No edema. No sores, rashes or bruising throughout. Procedure: Procedure: Options discussed with the patient. Patient's chart was reviewed with her medication regiment adequate review of systems updated today as well. We will proceed with a lumbar epidural steroid injection today with fluoroscopic guidance. Risks were discussed including but not limited to: Bleeding, infection, possibility of epidural hematoma and subsequent neurological compromise, dural puncture, headaches, spinal cord and/or nerve damage, side effects of steroid medication, and poor results regarding pain control. Patient understands and wished to proceed. Also, will prescribe new medication of meloxicam 15 mg 1 tablet daily. Patient given instruction as well as side effects to be aware of. Also will order MRI scan lumbar spine to differentiate the increased radiculopathy and weakness in the left lower extremity. Patient return to clinic after MRI scan is obtained. Medication Injected: Med Injected: Procedure is lumbar epidural steroid injection under local anesthetic using sterile prep and drape at the L5-S1 level using C-arm fluoroscopic guidance in both AP and lateral views medications injected is 120 mg Depo-Medrol +10mL preservative-free normal saline and 2 mL contrast- condition at discharge is stable patient tolerated procedure well had no complications. Condition at Discharge: Condition at Discharge: Condition at discharge stable, patient tolerated seizure well and had no complications. STEVE SILVA MD Nov 21, 2021 09:54
--- NOTE | 2021-11-21 09:55 | PDOC4 ---
Procedure Note: ICD 10 Code: ICD 10 Code: M54.17 M51.87 Procedure Note: Patient was consented for lumbar epidural steroid injection fluoroscopic guidance. Risks were discussed including but not limited to: Bleeding, infection, possibility of epidural hematoma and subsequent neurological compromise, dural puncture, headaches, spinal cord and/or nerve damage, side effects of steroid medication, and poor results regarding pain control. Patient understands and wished to proceed. Procedure is lumbar epidural steroid injection under local anesthetic using sterile prep and drape at the L5-S1 level using C-arm fluoroscopic guidance in both AP and lateral views medications injected is 120 mg Depo-Medrol +10mL preservative-free normal saline and 2 mL contrast- condition at discharge is stable patient tolerated procedure well had no complications. STEVE SILVA MD Nov 21, 2021 09:55
== END | disposition home or self-care (01) ==
LOC: PNCL 09:17
PROVIDERS: ATTEND Anesthesiology
DX: M51.16 Intervertebral disc disorders with radiculopathy, lumbar region (principal); Z87.891 Personal history of nicotine dependence; Z79.899 Other long term (current) drug therapy; Z88.0 Allergy status to penicillin; Z91.041 Radiographic dye allergy status; Z88.8 Allergy status to other drugs, medicaments and biological substances
CPT/HCPCS: 62323; J1030; J1040; Q9965

== ENCOUNTER → 2021-11-22 | Outpatient (CLI) | payer BC ==
[~2021-11-22] MED LIST changes: -IOHEXOL 180 MG/ML 10 ML VIAL. ONE; -methylPREDNISolone ACETATE 40 MG/ML VIAL. ONE; -methylPREDNISolone ACETATE 80 MG/ML VIAL. ONE
--- NOTE | 2021-11-22 13:58 | RAD ---
EXAMINATION: Magnetic resonance imaging (MRI) of the lumbar spine without contrast 11/22/2021 10:59 AM HISTORY: Left lumbar radiculopathy TECHNIQUE: Multiplanar multi-weighted MRI of the lumbar spine was performed without intravenous contr ast using the standard lumbar spine protocol. Contrast information: None administered. COMPARISON: None available. FINDINGS: There is 2 mm retrolisthesis of L5 on S1. Vertebral bodies demonstrate normal signal intensity on all sequences. There are no compression fractures. The conus medullaris terminates at the level of L2. The distal spinal cord signal intensity is normal. There is mild disc desiccation at L4-L5 without significant disc height loss. Moderate disc height loss at L5-S1 with disc desiccation and Modic type II endplate degenerative changes. Moderate anterior marginal osteophytosis at L5-S1. Limited views o f the abdomen and pelvis show no soft tissue abnormality. The aorta is normal. L1-L2: The disc is normal in configuration. There is no facet arthropathy. There is no neuroforaminal stenosis. There is no spinal canal stenosis. L2-L3: The disc is normal in configuration. There is no facet arthropathy. There is no neuroforaminal stenosis. There is no spinal canal stenosis. L3-L4: The disc is normal in configuration. There is no facet arthropathy. There is no neuroforaminal stenosis. There is no spinal canal stenosis. L4-L5: There is a circumferential disc bulge. Mild facet arthropathy ligamentum flavum infolding. Mil d bilateral neuroforaminal stenosis. Mild spinal canal stenosis. L5-S1: There is a circumferential disc bulge with right foraminal disc protrusion. Mild facet arthrop athy. Mild narrowing the right lateral recess. Moderate bilateral neuroforaminal stenosis. No signifi cant spinal canal stenosis. IMPRESSION: Mild degenerative changes of the lumbar spine as described in detail above. Electronically signed by: Palak Sidhu MD (11/22/2021 1:56 PM) [id number]
== END | disposition home or self-care (01) ==
LOC: MRI 10:55
PROVIDERS: ATTEND Anesthesiology
DX: M47.26 Other spondylosis with radiculopathy, lumbar region (principal); Z79.899 Other long term (current) drug therapy; Z87.891 Personal history of nicotine dependence; Z91.041 Radiographic dye allergy status; Z88.0 Allergy status to penicillin; Z88.8 Allergy status to other drugs, medicaments and biological substances
CPT/HCPCS: 72148

== ENCOUNTER 2022-03-27 15:47 | Emergency (ER) | payer BC ==
[~2022-03-27] VITALS: Ht 177.8 cm; Wt 88.1 kg
[2022-03-27] MEDS ORDERED: fentaNYL PF VIAL 100 MCG/2 ML VIAL IVP ONE (16:30)
[2022-03-27] MEDS ORDERED: ONDANSETRON PF 4 MG/2 ML VIAL. IVP ONE (16:30)
[2022-03-27] MEDS ORDERED: IV NORMAL SALINE 1000ML BAG 1,000 ML IV ONE (16:30)
[2022-03-27 16:39] LABS: BASO # 0.1 x10^3/uL (0.0-0.2); BASO % 0 % (0-3); EOS # 0.1 x10^3/uL (0.0-0.7); EOS % 1 % (0-3); HEMATOCRIT 39.9 % (36.0-47.0); HEMOGLOBIN 13.7 g/dL (12.0-15.5); LYMPH % 26 % (24-48); MEAN CORPUSCULAR HEMOGLOBIN 35 pg (25-35); MEAN CORPUSCULAR HGB CONC 34 g/dL (31-37); MEAN CORPUSCULAR VOLUME 101 fL (79-100); MONO # 0.6 x10^3/uL (0.0-1.1); MONO % 5 % (0-9); NEUT # 7.9 x10^3/uL (1.8-7.7); NEUT % 68 % (31-73); PLATELET COUNT 448 x10^3/uL (140-400); RED BLOOD COUNT 3.95 x10^6/uL (3.50-5.40); RED CELL DISTRIBUTION WIDTH 13.9 % (11.5-14.5); WHITE BLOOD COUNT 11.7 x10^3/uL (4.0-11.0)
--- NOTE | 2022-03-27 16:57 | RAD ---
EXAMINATION: CT ABDOMEN+PELVIS WO CLINICAL HISTORY: Left-sided abdominal pain. TECHNIQUE: Imaging of the abdomen and pelvis was performed without intravenous contrast using standar d technique, scanning from just above the dome of the diaphragm to the symphysis pubis. Unenhanced i maging is limited for the evaluation of some intra-abdominal and pelvic pathology. CT Dose Reduction Employed: One or more of the following individualized dose reduction techniques wer e utilized for this examination: 1. Automated exposure control 2. Adjustment of the mA and/or kV ac cording to patient size 3. Use of iterative reconstruction technique. COMPARISON: 07/15/2018 FINDINGS: Stable partially calcified 9 mm nodule in the left lung base, possibly related to old granulomatous d isease. Diffuse hypoattenuation of the hepatic parenchyma, compatible with steatosis. Gallbladder, pancreas, spleen, and adrenal glands unremarkable. Ill-defined subtle area of hypoattenuation mid to lower pole right kidney, likely corresponding to th e cyst seen on comparison study. Left kidney unremarkable. Minimally filled urinary bladder suboptimally evaluated. Hysterectomy. No dilated bowel. Mild distal colonic diverticulosis. Appendix within normal limits. Mild arterial atherosclerotic calcification without aneurysm. L5-S1 degenerative disc disease. IMPRESSION: No evidence of acute abdominopelvic abnormality. Hepatic steatosis. Electronically signed by: Kevin Cassidy DO (03/27/2022 4:54 PM) [facility]
[2022-03-27 17:01] LABS: CREATININE 0.8 mg/dL (0.6-1.0); GFR 90.1; POTASSIUM 3.2 mmol/L (3.5-5.1)
--- NOTE | 2022-03-27 17:07 | PHYS DOC ---
Past Medical History Past Medical History: No Pertinent History, Other Additional Past Medical Histor: svt Past Surgical History: Hysterectomy, Other Additional Past Surgical Histo: left foot Smoking Status: Current Every Day Smoker Alcohol Use: None Drug Use: Marijuana General Adult EDM: Chief Complaint: ABDOMINAL PAIN HPI: HPI: Patient is a 56-year-old female who presents today with abdominal pain for the last 4 days, patient states the pain has been ongoing and progressively gotten worse and having mostly left-sided abdominal pain. Patient states she has had nausea and vomiting, no diarrhea, no painful urination or frequency in urination. Patient does states she has had a past medical history of a hysterectomy with oophorectomy as well. Patient states she has had chills but no fever. Review of Systems: Review of Systems: Constitutional: chills. [] Eyes: Denies change in visual acuity. [] HENT: Denies nasal congestion or sore throat. [] Respiratory: Denies cough or shortness of breath. [] Cardiovascular: Denies chest pain or edema. [] GI: abdominal pain, nausea, vomiting, denies bloody stools or diarrhea. [] : Denies dysuria. [] Musculoskeletal: Denies back pain or joint pain. [] Integument: Denies rash. [] Neurologic: Denies headache, focal weakness or sensory changes. [] Endocrine: Denies polyuria or polydipsia. [] Lymphatic: Denies swollen glands. [] Psychiatric: Denies depression or anxiety. [] Heart Score: C/O Chest Pain: No Risk Factors: Risk Factors: DM, Current or recent (<one month) smoker, HTN, HLP, family history of CAD, obesity. Risk Scores: Score 0 - 3: 2.5% MACE over next 6 weeks - Discharge Home Score 4 - 6: 20.3% MACE over next 6 weeks - Admit for Clinical Observation Score 7 - 10: 72.7% MACE over next 6 weeks - Early Invasive Strategies Current Medications: Current Medications Medications (Trade) Dose Ordered Sig/Whitney Start Time Stop Time Status Last Admin Dose Admin Fentanyl Citrate (Fentanyl 2ml Vial) 50 mcg 1X ONCE 03/27/22 16:30 03/27/22 16:32 DC 03/27/22 16:35 50 MCG Ondansetron HCl (Zofran) 4 mg 1X ONCE 03/27/22 16:30 03/27/22 16:32 DC 03/27/22 16:35 4 MG Sodium Chloride 1,000 ml @ 999 mls/hr 1X ONCE 03/27/22 16:30 03/27/22 17:30 03/27/22 16:35 999 MLS/HR Allergies: Allergies: Allergies Coded Allergies Type Severity Reaction Last Updated Verified Iodine and Iodide Containing Produc Allergy Intermediate Unknown 03/23/20 Yes Penicillins Allergy Intermediate Unknown 03/23/20 Yes ibuprofen Allergy Intermediate Unknown 03/23/20 Yes Physical Exam: PE: Constitutional: Well developed, well nourished, no acute distress, non-toxic appearance. [] HENT: Normocephalic, atraumatic, bilateral external ears normal, oropharynx moist, no oral exudates, nose normal. [] Eyes: PERRLA, EOMI, conjunctiva normal, no discharge. [] Neck: Normal range of motion, no tenderness, supple, no stridor. [] Cardiovascular:Heart rate regular rhythm, no murmur [] Lungs & Thorax: Bilateral breath sounds clear to auscultation [] Abdomen: Bowel sounds normal, soft, no tenderness, no masses, no pulsatile masses. [] Skin: Warm, dry, no erythema, no rash. [] Back: No tenderness, no CVA tenderness. [] Extremities: No tenderness, no cyanosis, no clubbing, ROM intact, no edema. [] Neurologic: Alert and oriented X 3, normal motor function, normal sensory function, no focal deficits noted. [] Psychologic: Affect normal, judgement normal, mood normal. [] Current Patient Data: Labs: Laboratory Tests Test 03/27/22 16:26 White Blood Count 11.7 x10^3/uL (4.0-11.0) H Red Blood Count 3.95 x10^6/uL (3.50-5.40) Hemoglobin 13.7 g/dL (12.0-15.5) Hematocrit 39.9 % (36.0-47.0) Mean Corpuscular Volume 101 fL (79-100) H Mean Corpuscular Hemoglobin 35 pg (25-35) Mean Corpuscular Hemoglobin Concent 34 g/dL (31-37) Red Cell Distribution Width 13.9 % (11.5-14.5) Platelet Count 448 x10^3/uL (140-400) H Neutrophils (%) (Auto) 68 % (31-73) Lymphocytes (%) (Auto) 26 % (24-48) Monocytes (%) (Auto) 5 % (0-9) Eosinophils (%) (Auto) 1 % (0-3) Basophils (%) (Auto) 0 % (0-3) Neutrophils # (Auto) 7.9 x10^3/uL (1.8-7.7) H Lymphocytes # (Auto) 3.0 x10^3/uL (1.0-4.8) Monocytes # (Auto) 0.6 x10^3/uL (0.0-1.1) Eosinophils # (Auto) 0.1 x10^3/uL (0.0-0.7) Basophils # (Auto) 0.1 x10^3/uL (0.0-0.2) Sodium Level 140 mmol/L (136-145) Potassium Level 3.2 mmol/L (3.5-5.1) L Chloride Level 103 mmol/L (98-107) Carbon Dioxide Level 23 mmol/L (21-32) Anion Gap 14 (6-14) Blood Urea Nitrogen 6 mg/dL (7-20) L Creatinine 0.8 mg/dL (0.6-1.0) Estimated GFR (Cockcroft-Gault) 90.1 BUN/Creatinine Ratio 8 (6-20) Glucose Level 106 mg/dL (70-99) H Calcium Level 9.0 mg/dL (8.5-10.1) Total Bilirubin Pending Aspartate Amino Transferase (AST) Pending Alanine Aminotransferase (ALT) Pending Alkaline Phosphatase Pending Total Protein Pending Albumin Pending Albumin/Globulin Ratio Pending Lipase Pending Laboratory Tests 03/27/22 16:26 Laboratory Tests 03/27/22 16:26 Vital Signs: Vital Signs Date Time Temp Pulse Resp B/P (MAP) Pulse Ox O2 Delivery O2 Flow Rate FiO2 03/27/22 18:43 74 20 132/63 (86) 100 Room Air 03/27/22 18:13 72 20 129/63 (85) 100 Room Air 03/27/22 17:43 78 20 132/76 (94) 100 Room Air 03/27/22 17:42 20 100 03/27/22 17:13 84 20 140/91 (107) 100 Room Air 03/27/22 16:43 91 20 145/83 (103) 100 Room Air 03/27/22 16:35 18 100 03/27/22 16:05 97.7 107 20 167/80 (109) 99 Room Air 97.7 Vital Signs Date Time Temp Pulse Resp B/P (MAP) Pulse Ox O2 Delivery O2 Flow Rate FiO2 03/27/22 16:35 18 100 03/27/22 16:05 97.7 107 167/80 (109) Room Air 97.7 EKG: EKG: [] Radiology/Procedures: Radiology/Procedures: REASON: abdominal pain left sided PROCEDURE: CT ABDOMEN PELVIS WO CONTRAST EXAMINATION: CT ABDOMEN+PELVIS WO CLINICAL HISTORY: Left-sided abdominal pain. TECHNIQUE: Imaging of the abdomen and pelvis was performed without intravenous contrast using standard technique, scanning from just above the dome of the diaphragm to the symphysis pubis. Unenhanced imaging is limited for the evaluation of some intra-abdominal and pelvic pathology. CT Dose Reduction Employed: One or more of the following individualized dose reduction techniques were utilized for this examination: 1. Automated exposure control 2. Adjustment of the mA and/or kV according to patient size 3. Use of iterative reconstruction technique. COMPARISON: 07/15/2018 FINDINGS: Stable partially calcified 9 mm nodule in the left lung base, possibly related to old granulomatous disease. Diffuse hypoattenuation of the hepatic parenchyma, compatible with steatosis. Gallbladder, pancreas, spleen, and adrenal glands unremarkable. Ill-defined subtle area of hypoattenuation mid to lower pole right kidney, likely corresponding to the cyst seen on comparison study. Left kidney unremarkable. Minimally filled urinary bladder suboptimally evaluated. Hysterectomy. No dilated bowel. Mild distal colonic diverticulosis. Appendix within normal limits. Mild arterial atherosclerotic calcification without aneurysm. L5-S1 degenerative disc disease. IMPRESSION: No evidence of acute abdominopelvic abnormality. Hepatic steatosis. Electronically signed by: Kevin Cassidy DO (03/27/2022 4:54 PM) [facility] [] Course & Med Decision Making: Course & Med Decision Making Pertinent Labs and Imaging studies reviewed. (See chart for details) 1844 I called radiology and did review the radiology films with the radiologist on-call and he states the patient has a large amount of stool but no renal stones were noted and no diverticulitis was noted. I did review radiological and laboratory results with patient did inform her there was no acute findings except for the large amount of stool in her colon. I did inform her that the patient did have blood in her urine and that she should follow-up with her primary care physician for further evaluation of her renal function. Patient is instructed to take MiraLAX on a daily basis also a bottle of mag citrate tonig ht to help with relieving some of her constipation. Patient is instructed to follow a clear liquid diet over the next 24 to 48 hours and then advance as tolerated. Patient will be given Zofran and hydrocodone as needed for pain with the caution that both of those medications can cause constipation. Patient was also instructed to increase by mouth fluids to 1 to 2 L a day. Patient verbalized understanding of this and is agreeable with plan of care. Dragon Disclaimer: Dragon Disclaimer: This electronic medical record was generated, in whole or in part, using a voice recognition dictation system. Departure Departure Impression: Primary Impression: Abdominal pain Qualified Codes: R10.84 - Generalized abdominal pain Additional Impression: Constipation Qualified Codes: K59.00 - Constipation, unspecified Disposition: HOME / SELF CARE / HOMELESS Condition: STABLE Referrals: BESS WARNER MD (PCP) Patient Instructions: Abdominal Pain, Clear Liquid Diet, Constipation, Adult Additional Instructions: Clear liquids for the next 24 to 48 hours then advance as tolerated 1 bottle of magnesium citrate tonight to help start relieving your constipation MiraLAX 1 capful twice daily for 3 days then every day, if you start having loose stools or multiple stools throughout the day you can push that back to 1 capful every other day Zofran 4 mg take 1 tablet every 4-6 hours as needed for nausea Potassium chloride 20 mg take 1 tablet daily for 3 days Hydrocodone take 1 tablet every 6 hours as needed for severe pain, use with caution may cause drowsiness and constipation [id number] Tylenol and/or ibuprofen as needed for mild to moderate pain Follow-up with your primary care physician in the next couple of days for further evaluation and management of your abdominal pain Return here to the emergency department should you develop a fever, your pain localizes to the right lower quadrant, or if you are unable to keep any by mouth fluids down Scripts Hydrocodone Bit/Acetaminophen (HYDROCODONE-APAP 5-325 ) 1 Tab Tablet 1 TAB PO PRN Q6HRS PRN for PAIN, #10 TAB 0 Refills Prov: ASTRID SAMUELS APRN 03/27/22 Potassium Chloride (K-Tab ER) 20 Meq Tablet.er 20 MEQ PO DAILY for 3 Days, #3 TAB.SR Prov: ASTRID SAMUELS PATIENT ADVOCATE 03/27/22 Ondansetron (ONDANSETRON ODT) 4 Mg Tab.rapdis 1 TAB PO PRN Q6-8HRS, #16 TAB Prov: ASTRID SAMUELS PATIENT ADVOCATE 03/27/22 ASTRID SAMUELS PATIENT ADVOCATE March 27, 2022 17:07
[2022-03-27 17:08] LABS: ALBUMIN 3.4 g/dL (3.4-5.0); ALBUMIN/GLOBULIN RATIO 0.8 (1.0-1.7); TOTAL BILIRUBIN 0.4 mg/dL (0.2-1.0); TOTAL PROTEIN 7.8 g/dL (6.4-8.2)
[2022-03-27] MEDS ORDERED: HYDROmorphone 2 MG/ML INJ. IVP ONE (17:45)
[2022-03-27 18:43] VITALS: BP 132/63
[2022-03-27 18:44] LABS: BACTERIA,URINE FEW /HPF (0-FEW)
[2022-03-27] MEDS ORDERED: ONDA4TAB12 PO (19:10)
[2022-03-27] MEDS ORDERED: POTA20TA84 PO (19:10)
[2022-03-27] MEDS ORDERED: HYDR-2761 PO (19:10)
== END 2022-03-27 19:19 | disposition home or self-care (01) ==
LOC: ER 15:47
DX: K59.00 Constipation, unspecified (principal); R10.84 Generalized abdominal pain; R11.2 Nausea with vomiting, unspecified; F17.200 Nicotine dependence, unspecified, uncomplicated; Z90.710 Acquired absence of both cervix and uterus; Z90.722 Acquired absence of ovaries, bilateral; Z88.0 Allergy status to penicillin; Z88.8 Allergy status to other drugs, medicaments and biological substances
CPT/HCPCS: 36415; 74176; 80053; 81001; 83690; 85025; 96361; 96374; 96375; 99285; J1170; J2405; J3010; J7030